=== PATIENT | male | born 1935 | race Caucasian/White ===

== ENCOUNTER → 2021-03-26 09:35 | Outpatient (CLI) | payer MEDICARE, OTHER, SELFPAY ==
--- NOTE | 2021-03-26 09:36 | DI.MRI.S_ITS ---
PROCEDURE: MR CERVICAL SPINE WO CON INDICATIONS: Cervical radiculopathy TECHNIQUE: Noncontrast sagittal T1 spin echo and T2 fast spin echo, sagittal STIR, foraminal oblique sagittal T2 fast spin echo, and axial gradient echo or T2 fast spin echo through the cervical spine. COMPARISON: None. FINDINGS: Image quality: Excellent. Alignment and Curvature: There is normal bony alignment. Bone Marrow: Marrow demonstrates normal overall signal. Spinal Cord: Visualized spinal cord has normal size and signal. No cerebellar tonsillar herniation. Paraspinous Soft Tissues: No paravertebral masses. Prevertebral soft tissues are normal in thickness. C2-C3: No spinal canal or neural foraminal stenosis. C3-C4: Mild spinal canal stenosis due to posterior disc-osteophyte complex. Facet and uncovertebral hypertrophy contribute to mild bilateral neural foraminal narrowing. C4-C5: No spinal canal stenosis. Facet and uncovertebral hypertrophy contribute to moderate bilateral neural foraminal narrowing. C5-C6: No spinal canal stenosis. Moderate left and mild right neural foraminal narrowing due to facet and uncovertebral hypertrophy. C6-C7: No spinal canal stenosis. Moderate left and mild right neural foraminal stenosis due to facet and uncovertebral hypertrophy. C7-T1: No spinal canal or neural foraminal stenosis. IMPRESSION: Varying degrees of neural foraminal narrowing up to moderate. Mild spinal canal stenosis at C3-C4. Dictated by: Justin Robledo M.D. on 03/26/2021 at 13:09 Approved by: Justin Robledo M.D. on 03/26/2021 at 13:15
== END ==
PROVIDERS: PCP Family Medicine; Referring Provider Physical Medicine & Rehabilitation; Visit Provider Physical Medicine & Rehabilitation
DX: M54.12 Radiculopathy, cervical region (principal); M48.02 Spinal stenosis, cervical region
CPT/HCPCS: 72141

== ENCOUNTER → 2021-04-15 11:38 | Outpatient (ROUT) | payer MEDICARE, OTHER, SELFPAY ==
[2021-04-15 12:43] LABS: COVID19 -Nasal RAPID Negative (Negative)
== END ==
PROVIDERS: PCP Family Medicine; Visit Provider Physical Medicine & Rehabilitation
DX: Z20.822 Contact with and (suspected) exposure to COVID-19 (principal)
CPT/HCPCS: 87635; C9803

== ENCOUNTER 2021-04-16 08:35 | Outpatient (CLI) | payer MEDICARE, OTHER, SELFPAY ==
[2021-04-16] VITALS (8 sets, daily range): BP systolic 106–148; BP diastolic 55–70; PULSE 60–69; RESP 10–18; TEMP 36.3; O2SAT 95–100
--- NOTE | 2021-04-16 08:36 | DI.RAD.S_ITS ---
PROCEDURE: PAIN C/T INTERLAMINAR INJECT INDICATIONS: SPINAL STENOSIS COMPARISON: [facility], MR, MR CERVICAL SPINE WO CON, 03/26/2021, 9:53. [facility], RG, XR C-SPINE 4-6V, 12/10/2020, 10:20. FINDINGS: Fluoroscopic spot filming was performed to verify placement of spinal needles at the C6-C7 level(s), as labeled on the films. Appropriate location(s) of the needle tip(s) was confirmed by injection of iodinated contrast. IMPRESSION: Fluoroscopy guidance for pain management. Dictated by: Alka Mendoza M.D. on 04/16/2021 at 10:35 Approved by: Alka Mendoza M.D. on 04/16/2021 at 10:35
[2021-04-16] MEDS: fentaNYL 100 MCG/2 ML INJ 50 MCG IV (09:35)
[2021-04-16] MEDS: MIDAZOLAM 5 MG/5 ML VIAL IV (09:35)
[2021-04-16] MEDS: BUPIVACAINE 0.25% (PF) VIAL 2 ML INJ (09:38)
[2021-04-16] MEDS: DEXAMETHASONE 10 MG/ML VIAL 30 MG INJ (09:38)
[2021-04-16] MEDS: IOPAMIDOL 15 ML VIAL 3 ML INJ (09:38)
--- NOTE | 2021-04-16 09:50 | P.PCN_ITS ---
Date/Time/Diagnoses Date of procedure: 04/16/21 Time of procedure: 09:50 Pre-procedure diagnosis: 1. CERVICAL STENOSIS, 2. CERVICAL HNP WITH UPPER EXTREMITY RADICULAR FEATURES Post-procedure diagnosis: same Procedure Notes Procedure: 1. FLUORSCOPICALLY GUIDED CONTRAST CONTROLLED INTERLAMINAR EPIDURAL STEROID INJECTION - C6/7 TL BASILIO Indications: Fabian is referred by Dr. Izquierdo for treatment of Cervical HNP with Upper Extremity Paresthesias. Physician: Montana Rosas Total Fluoroscopy time (seconds): 24 Total sedation minutes: 11 Complications: none Procedure in detail & Post-procedure care: FINDINGS Cervical Stenosis due to disc deterioration and nerve root irritation and nerve root irritation DESCRIPTION OF PROCEDURE Fluoroscopically guided, contrast-controlled C6/7 translaminar epidural steroid injection with conscious sedation. Following review of allergy and review of potential side effects and complications, including, but not necessarily limited to, infection, allergic reaction, local tissue breakdown, temporary as well as permanent nerve injury, stroke, paralysis, and possible , the patient indicated that patient understood and agreed to proceed. An informed consent document was signed by the patient, witnessed by a nurse, and placed in the patient's chart. Additionally, other treatment options including modalities, medications, and physical therapy were reviewed with the patient. After review of previous anaesthesic history and IV conscious sedation the patient was deemed safe to proceed with today?s procedure with IV conscious sedation as ASA class II designation. Safety time-out was performed to confirm patient ID, procedure to be performed and site of procedure. IV sedation was accomplished with a combination of 2mg of Versed and 50mcg of Fentanyl administered by the RN after DO order, titrated to patient comfort during the course of the procedure while the patient remained responsive to all verbal commands. In the prone position, following sterile prep and drape of the cervical region, the C6/7 translaminar space was identified fluoroscopically. The skin was anesthetized via a 25-gauge 1.5-inch needle with 1% lidocaine solution. At this point, a 25-gauge, 2.5-inch short bevel spinal needle was atraumatically introduced and advanced under fluoroscopic guidance into epidural space at the C6/7 translaminar space. Depth was confirmed on lateral view. Radiological data, including multiple fluoroscopic views of the cervical spine, reveal a spinal needle at the C6/7 translaminar space. Lateral views then show placement of the needle in the epidural space. Subsequent views show contrast material flowing superiorly and inferiorly in the epidural space. DSA fluoroscopy with live contrast injection, once again, confirmed no vascular or intrathecal uptake. At this point, using loss of resistance technique with saline and air, the epidural space was entered. Following negative aspiration, injection of appr oximately 1.5 cc of Isovue-200 with live fluoroscopy in the AP view confirmed epidural flow in the epidural space without vascular or intrathecal uptake observed. Subsequently, a test dose of 1 cc of 1% lidocaine solution was injected and patient was observed for two minutes without signs or symptoms of complications, including abdominal pain, shortness of breath, bilateral upper or lower extremity weakness, nausea and vomiting, prior to steroid injection. At this point, 3cc or 30mg of dexamethasone was then injected without incident. The patient tolerated the procedure well without signs or symptoms of complications prior to being transferred to the recovery area for further monitoring, The patient was then transferred to the recovery area where they were observed for an appropriate period of time after the injection. The patient reported a VAS score of 6 prior to the procedure and a post-procedure VAS of 0. POST OP INSTRUCTIONS The patient was provided a Pain Log to continue to record their response to the target-specific procedure prior to follow-up visit with the referring provider. Additionally, specific post-injection care instructions and a contact number to our office were provided if concerns arise regarding possible complications associated with the procedure are suspected.
== END 2021-04-16 10:10 | disposition home or self-care (01) ==
LOC: RAD 08:36
PROVIDERS: PCP Family Medicine; Referring Provider Physical Medicine & Rehabilitation; Visit Provider Physical Medicine & Rehabilitation
DX: M48.02 Spinal stenosis, cervical region (principal); M50.123 Cervical disc disorder at C6-C7 level with radiculopathy
CPT/HCPCS: 62321; 99152; J1100; J2250; J3010

== ENCOUNTER → 2021-09-27 10:52 | Outpatient (CLI) | payer MEDICARE, OTHER, SELFPAY ==
[2021-09-27 12:40] LABS: COVID19 -Nasal RAPID Negative (Negative)
== END ==
PROVIDERS: PCP Family Medicine; Visit Provider Family Medicine Sleep Medicine
DX: Z20.822 Contact with and (suspected) exposure to COVID-19 (principal)
CPT/HCPCS: 87635; C9803

== ENCOUNTER 2021-09-30 06:43 | Day surgery (SDC) | payer MEDICARE, OTHER, SELFPAY ==
[2021-09-30] VITALS (7 sets, daily range): BP systolic 109–162; BP diastolic 70–80; PULSE 58–66; RESP 12–17; TEMP 35.6–36.8; O2SAT 97–98; BMI 21.8
--- NOTE | 2021-09-30 | PATH_ITS ---
[facility] Accession Number: [id number] No. of containers..02 Tissue . 01 Material submitted: . PART A: duodenum - DUODENUM PART B: stomach - ANTRUM . 02 Diagnosis: A. Duodenum: Duodenal mucosa with no diagnostic abnormality. Negative for active inflammation, features of sprue, dysplasia, or malignancy. . B. Antrum: Gastric antral mucosa with mild chronic inflammation. Negative for Helicobacter organisms by immunohistochemistry. Positive for intestinal metaplasia. Negative for dysplasia or malignancy. [facility] 10/03/2021 1411 Local . 02 Electronically signed: . Lamar Borrero MD, Pathologist NPI- [id number] . 01 Gross description: . Part A: DUODENUM: Received in formalin are 2 fragment(s) of gonzalez, soft tissue measuring 0.3 x 0.3 x 0.2 cm to 0.3 x 0.2 x 0.2 cm submitted entirely in 1 cassette(s) Part B: ANTRUM: Received in formalin are 2 fragment(s) of gonzalez, soft tissue measuring 0.2 x 0.2 x 0.1 cm to 0.1 x 0.1 x 0.1 cm submitted entirely in 1 cassette(s) /[facility] 10/01/2021 1943 Local . 02 Microscopic: . B. An immunohistochemical stain is performed to evaluate for Helicobacter organisms and is negative. The control stain showed appropriate reactivity. . . * This test was developed and its performance characteristics determined by [employer]. It has not been cleared or approved by the U.S. Food and Drug Administration. The FDA has determined that such clearance or approval is not necessary. This test is used for clinical purposes. It should not be regarded as investigational or for research. . 02 Pathologist provided ICD-10: R14.0 . 02 CPT . 207987, 309686, [id number] Specimen Comment: A courtesy copy of this report has been sent to [phone], [phone] Specimen Comment: [id number] Performed at: 01 [facility] [address] [address], [place], [place] [id number] MD Diego Poe MD Phone: [phone] Performed at: 02 [facility] [address] [address] [place] [id number] MD Jayla Moya MD Phone: [phone]
[2021-09-30] MEDS: SODIUM CHLORIDE 0.9% 1,000 ML 84 ML IV (07:27)
--- NOTE | 2021-09-30 07:58 | PM.HP.1 ---
History of Present Illness History of Present Illness Date Patient Seen: 09/30/21 Time Patient Seen: 07:58 Chief complaint: EGD W/BX Narrative: I reviewed my recent clinic note from September 10. No changes. Celiac serology was negative. 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 Impingement syndrome of right shoulder Surgical History History of arthroplasty of right shoulder History of cholecystectomy History of lumbar fusion Hx of appendectomy Family & Social History Family History Father Cancer Heart disease Mother Cancer Social History: household members spouse Tobacco & Substance use: Smoking Status Former smoker alcohol intake current alcohol intake frequency 0-2 drinks per day Substance Use Type does not use Meds Home Medications and Allergies Home Medications Medication Instructions Recorded Confirmed Type allopurinol 100 mg tablet 100 mg PO DAILY 03/18/21 09/30/21 History atorvastatin 40 mg tablet 40 mg PO DAILY 03/18/21 09/30/21 History losartan 100 mg tablet 100 mg PO DAILY 03/18/21 09/30/21 History metoprolol tartrate 25 mg tablet 25 mg PO DAILY 03/18/21 09/30/21 History pantoprazole 40 mg tablet,delayed 40 mg PO DAILY 03/18/21 09/30/21 History release tamsulosin 0.4 mg capsule 0.4 mg PO DAILY 03/18/21 09/30/21 History Allergies Allergy/AdvReac Type Severity Reaction Status Date / Time No Known Drug Allergies Allergy Verified 06/07/21 08:52 Review of Systems Review of Systems ROS: Yes All systems reviewed with the patient and are negative except as otherwise documented Exam Vital Signs (past 8 hours): - 09/30/21 07:14 Temperature 96.1 F L Pulse Rate 61 Respiratory Rate 17 Blood Pressure 162/80 H Pulse Oximetry 98 Oxygen Delivery Method Room Air Const General: cooperative and comfortable Orientation: alert HENMT Head: normocephalic Ears: external ears normal Nose: external nose normal Face and sinus: normal facial exam Mouth: oral mucosae normal Eyes General: appearance normal, both eyes and all related structures Neck Neck: normal visual inspection Chest Chest: normal inspection of the chest Resp Effort & Inspection: normal respiratory effort Cardio Rate: regular rate GI Inspection: normal to inspection Skin General: no rashes or lesions noted and No jaundice Neuro General: patient alert and moves all extremities Cognition: normal cognition Speech: speech normal Extrem General: no pedal edema Psych Appearance: grossly normal Assessment & Plan Assessment & Plan narrative: 86-year-old male with a history of bloating. He was found to have abnormal imaging suggesting duodenitis. EGD is therefore pursued. Time Spent With Patient Critical Care time: I spent a total of [] minutes of critical care time on this patient's care today; this time is exclusive of procedural time.
--- NOTE | 2021-09-30 08:00 | PM.PREOP ---
Pre-operative Note COVID-19 COVID-19 status: Negative Result date/Date tested (Pos, Neg/Pending): 09/27/21 Criteria for continued procedure: Possibility delay results in more complex future surgery or treatment Interval Note History & Physical reviewed/Exam performed by Physician: Yes Changes to H&P: Yes ASA Class (for procedural sedation): II
--- NOTE | 2021-09-30 08:19 | P.OP.EGD_ITS ---
Operative Date/Time/Diagnoses Date of procedure: 09/30/21 Time of procedure: 08:19 Pre-op diagnosis: Bloating abnormal imaging Post-op diagnosis: same Procedure & Clinicians Study performed: EGD with biopsies Same procedure as scheduled: Yes Indications: Bloating abnormal imaging Surgeon: Edmond Ashford Procedure Notes SCOAP/Timeout: Done Procedure in detail: After the risks and benefits were explained, written and verbal informed consent was obtained. The patient was brought into the procedure room and placed into the left lateral decubitus position. Please see nurse production machine operator notes for sedation details. The scope was introduced into the mouth through the bite block and advanced under direct visualization to the 2nd portion of the duodenum. The scope was slowly withdrawn carefully examining the mucosa for any defects or lesions. Retroflexed views were accomplished in the stomach. The stomach was decompressed, the scope was then removed from the patient who tolerated the procedure well. Sedation minutes: 11 Complications: none Impression: 1. Esophagus: The squamocolumnar junction correlated with the top of the gastric folds. GEJ was at about 40 cm from the incisors. No acute erosive changes no strictures no mass lesions. 2. Stomach: The patient had a moderate gastropathy characterized by a patchy erythema with off white appearing papules. These areas were biopsied for histopathology. No ulcers no mass lesions no outlet obstruction. Retroflexed views of the LES were unremarkable. 3. Duodenum: No mucosal pathology was appreciated from the bulb through to the 2nd portion. Biopsies were taken at random in D2. I was able to advance the scope all the way through the duodenum to perhaps D4 and did not appreciate any additional pathology with the exception of a large duodenal diverticulum in and around the corner into D3. Endoscopic diagnosis 1. Gastropathy 2. Duodenal diverticulosis Post-procedure Plan for aftercare: 1. Await histopathology. 2. Surveillance EGD is not planned. 3. Follow up primary care. Disposition: PACU
== END 2021-09-30 08:54 | disposition home or self-care (01) ==
LOC: ENDO 06:45
PROVIDERS: PCP Family Medicine; Referring Provider Internal Medicine Gastroenterology; Visit Provider Internal Medicine Gastroenterology
PROC: 0DJ08ZZ Inspection of Upper Intestinal Tract, Via Natural or Artificial Opening Endoscopic (ICD-10-PCS; CPT 43235; principal; 2021-09-30 08:00)
DX: K57.10 Diverticulosis of small intestine without perforation or abscess without bleeding (principal); K29.50 Unspecified chronic gastritis without bleeding
CPT/HCPCS: 43239

== ENCOUNTER → 2022-03-20 13:29 | Outpatient (CLI) | payer MEDICARE, OTHER, SELFPAY ==
--- NOTE | 2022-03-20 13:31 | DI.MRI.S_ITS ---
PROCEDURE: MR LUMBAR SPINE WO CON INDICATIONS: Lumbar radiculopathy, status post fusion TECHNIQUE: Noncontrast sagittal T1 spin echo and T2 fast echo, sagittal STIR, and T2 fast spin echo through the lumbar spine. In cases with scoliosis, additional coronal T2 fast spin echo may be performed. COMPARISON: [facility] Outside Film, CT, CT ABDOMEN WITH/WITHOUT AND PELVIS WITH CONTRAST, 06/22/2019, 12:46. [facility], CR, XR LUMBAR SPINE 2 OR 3 VIEWS, 02/27/2020, 8:43. FINDINGS: Image quality: Excellent. Alignment and Curvature: Mild dextroconvex scoliotic curvature is seen. Minimal retrolisthesis is seen at the L2-L3 level. There is minimal anterolisthesis at L3-L4 and L4-L5. Minimal retrolisthesis is seen at L5-S1. Bone Marrow: Marrow is of normal overall signal. No acute vertebral body compression fractures. Spinal Cord: Conus medullaris terminates at the T12-L1 level. Visualized cord demonstrates normal signal and size. Paraspinous Soft Tissues: No paravertebral masses. T11-T12: At least moderate loss of disc height and disc signal can be seen. Mild generalized disc bulge is seen. There is a superimposed central disc protrusion. There is moderate left-sided and moderate to severe right-sided neural foraminal narrowing. Mild central canal narrowing is seen. T12-L1: The disc height and disc signal are relatively well preserved. Mild generalized disc bulge is seen. Mild facet joint hypertrophy is seen. There is moderate right-sided and mild left-sided neural foraminal narrowing. No significant central canal narrowing is seen. L1-L2: Moderate loss of disc height is seen. Loss of disc signal is seen. Moderate disc bulge is seen, which is eccentric to the right. Mild to moderate facet hypertrophy can be seen. There is moderate bilateral neural foraminal narrowing seen, left worse than right. Mild to moderate central canal narrowing is seen. L2-L3: Siru-ak-szudnime loss of disc height and disc signal can be seen. At least moderate disc bulge is seen. There is a superimposed central disc protrusion. Moderate facet joint hypertrophy is seen. Associated hypertrophy of the ligamentum flavum can be seen. Moderate bilateral neural foraminal narrowing can be seen, right worse than left. There is moderate to severe central canal narrowing, as on series 5, image 16. L3-L4: Moderate to severe loss of disc height and disc signal can be seen. Reactive marrow endplate changes are seen which are hypointense on T1-weighted imaging and hyperintense on T2 weighted imaging, which is most consistent with edema (Modic type I changes). At least moderate disc bulge is seen, which is eccentric to the left. Moderate facet joint hypertrophy is seen. There is moderate to severe bilateral neural foraminal narrowing seen, with an associated a degree of compression seen upon the exiting nerve roots. Moderate to severe central canal narrowing is also seen. L4-L5: Postoperative changes are seen, with right-sided pedicle screws at L4 and L5. There is a vertical fixation janusz seen. There is a disc spacer seen. Right hemilaminectomy change can be seen. Reactive marrow endplate changes are seen, which are hyperintense on T1-weighted and T2-weighted imaging and most consistent with fatty metaplasia (Modic type II changes). Moderate disc bulge is seen, which is eccentric to the left. There is moderate left-sided and rncx-ur-qsctwuml right-sided neural foraminal narrowing. Mild to moderate central canal narrowing is seen. L5-S1: At least moderate loss of disc height and disc signal can be seen. Moderate disc bulge is seen, with a mild central disc protrusion. There is a focal annular fissure seen posteriorly. Mild facet joint hypertrophy is seen. There is at least moderate bilateral neural foraminal narrowing seen, right worse than left. There is a degree of compression seen upon the exiting nerve roots. Mild central canal narrowing is seen. IMPRESSION: L4-5 postoperative change can be seen. Multiple levels of lumbar spine degenerative change are seen, which are overall worst at the L3-L4 level. Dictated by: Roger Becerra M.D. on 03/20/2022 at 17:38 Approved by: Roger Becerra M.D. on 03/20/2022 at 17:44
== END ==
PROVIDERS: PCP Nurse Practitioner Family; Referring Provider Physical Medicine & Rehabilitation; Visit Provider Physical Medicine & Rehabilitation
DX: M47.26 Other spondylosis with radiculopathy, lumbar region (principal); Z98.1 Arthrodesis status
CPT/HCPCS: 72148

== ENCOUNTER 2022-05-13 12:47 | Outpatient (CLI) | payer MEDICARE, OTHER, SELFPAY ==
[2022-05-13] VITALS (8 sets, daily range): BP systolic 124–151; BP diastolic 63–73; PULSE 60–69; RESP 14–20; O2SAT 96–99
--- NOTE | 2022-05-13 13:47 | DI.RAD.S_ITS ---
PROCEDURE: PAIN L/SI FACET INJ/BLK 1STL INDICATIONS: SPONDYLOSIS COMPARISON: [facility], MR, MR LUMBAR SPINE WO CON, 03/20/2022, 13:52. FINDINGS: Fluoroscopic spot filming was performed to verify placement of spinal needles at the L5-S1 level, as labeled on the films. Appropriate location of the needle tips was confirmed by injection of iodinated contrast. IMPRESSION: No significant intraprocedural abnormality. Dictated by: Roger Becerra M.D. on 05/13/2022 at 13:51 Approved by: Roger Becerra M.D. on 05/13/2022 at 13:51
[2022-05-13] MEDS: MIDAZOLAM 2 MG/2 ML VIAL IV (13:55)
[2022-05-13] MEDS: BETAMETHASONE 30 MG/5 ML MDV 12 MG INJ (14:01)
[2022-05-13] MEDS: IOPAMIDOL 15 ML VIAL 3 ML INJ (14:01)
[2022-05-13] MEDS: BUPIVACAINE 0.5% (PF) VIAL 5 ML INJ (14:01)
--- NOTE | 2022-05-13 14:10 | P.PCN_ITS ---
Date/Time/Diagnoses Date of procedure: 05/13/22 Time of procedure: 14:11 Pre-procedure diagnosis: 1. FACET ARTHROPATHY, 2. AXIAL LBP, 3. MULTILEVEL DDD, Post-procedure diagnosis: same Procedure Notes Procedure: 1. FLUORSCOPICALLY GUIDED CONTRAST CONTROLLED FACET JOINT INJECTIONS BILATERAL L5/S1 Indications: Fabian is referred by MAGGIE Black for treatment of Axial LBP Physician: Montana Rosas Total Fluoroscopy time (seconds): 11 Total sedation minutes: 11 Complications: none Procedure in detail & Post-procedure care: DESCRIPTION OF PROCEDURE Fluoroscopically guided, contrast-controlled bilateral L5/S1 facet joint injections. Following review of allergy and review of potential side effects and complications, including, but not necessarily limited to, infection, allergic reaction, local tissue breakdown, stroke, temporary or permanent nerve injury, paralysis, and possible , the patient indicated that the patient understood and agreed to proceed. An informed consent document was signed by the patient, witnessed by a nurse, and placed in the patient's chart. Additionally, other treatment options including medications, modalities, and physical therapy were reviewed with the patient. After review of previous anaesthesic history and IV conscious sedation the patient was deemed safe to proceed with today?s procedure with IV conscious sedation as ASA class II designation. Safety time-out was performed to confirm patient ID, procedure to be performed and site of procedure. IV sedation was accomplished with a combination of 2mg of Versed administered by the RN after DO order, titrated to patient comfort during the course of the procedure while the patient remained responsive to all verbal commands In the prone position, following sterile prep and drape of the lumbar region, the posterior aspect of the L5/S1 facet joints were identified fluoroscopically. The skin was anesthetized via a 25-gauge 1.5-inch needle with 1% lidocaine solution into the corresponding facet joints. At this point, a 22-gauge 3inch spinal needle was atraumatically introduced and advanced under fluoroscopic guidance into the corresponding facet joints. Following negative aspiration, in jections of approximately 0.2cc of Isovue 200 confirmed interarticular placement without vascular uptake. The identical procedure was then performed at the L5/S1 facet joints on the left. Radiological data, including multiple fluoroscopic views of the lumbosacral spine, reveal a spinal needle at the L5/S1 facet joints bilaterally. Subsequent views show flow of contrast material both superiorly and inferiorly within the joint space without vascular or intrathecal uptake. At this point, a total of 0.5cc including a mixture of 0.25cc Marcaine and 0.25cc betamethasone was injected without complication into each of the corresponding facet joints. The patient tolerated the procedure well without signs or symptoms of complications prior to transfer to the recovery area continued monitoring without incident. The patient was then transferred to the recovery area where they were observed for an appropriate period of time after the injection. The patient reported a VAS score of 7 prior to the procedure and a post-procedure VAS of 0. POST OP INSTRUCTIONS The patient was provided a Pain Log to continue to record their response to the target-specific procedure prior to follow-up visit with their referring physician. Additionally, specific post-injection care instructions and a contact number to our office were provided if concerns arise regarding possible complications associated with the procedure are suspected.
== END 2022-05-13 14:30 | disposition home or self-care (01) ==
LOC: RAD 12:48
PROVIDERS: PCP Nurse Practitioner Family; Referring Provider Physical Medicine & Rehabilitation; Visit Provider Physical Medicine & Rehabilitation
DX: M47.817 Spondylosis without myelopathy or radiculopathy, lumbosacral region (principal); M51.37 Other intervertebral disc degeneration, lumbosacral region
CPT/HCPCS: 64493; 64494; 99152; J0702; J2250

== ENCOUNTER → 2022-06-17 14:15 | Outpatient (CLI) | payer MEDICARE, OTHER, SELFPAY ==
--- NOTE | 2022-06-17 14:17 | DI.RAD.S_ITS ---
PROCEDURE: XR HIP W PEL IF DONE VANE MIN 4V INDICATIONS: right hip and groin pain TECHNIQUE: AP pelvis with lateral view(s) of the both hip(s). COMPARISON: CR, XR LUMBAR SPINE 2 OR 3 VIEWS, 04/29/2017, 9:16. [facility], MR, MR LUMBAR SPINE WO CON, 03/20/2022, 13:52. FINDINGS: Bones: No fractures or dislocations. Pelvic ring appears intact. No suspicious bony lesions. There is severe right and moderate left hip joint degeneration. Mild degenerative joint disease of the sacroiliac joints bilaterally. Lower lumbar spine fusion at L4-L5 with right leona pedicular screws and fusion janusz. There is severe degenerative disc and facet disease in the lower lumbar spine. Soft tissues: The visualized bowel gas pattern is normal. No suspicious soft tissue calcifications. IMPRESSION: 1. 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 If clinical symptoms persist or clinical suspicion for pathology is high, a repeat examination in 7-10 days, or advanced imaging such as CT or MRI is suggested for further evaluation. 2. Severe degenerative disc and facet disease in the lower lumbar spine. Dictated by: Alka Mendoza M.D. on 06/17/2022 at 15:08 Approved by: Alka Mendoza M.D. on 06/17/2022 at 15:13
== END ==
PROVIDERS: PCP Nurse Practitioner Family; Referring Provider Physical Medicine & Rehabilitation; Visit Provider Physical Medicine & Rehabilitation
DX: M16.0 Bilateral primary osteoarthritis of hip (principal); M47.816 Spondylosis without myelopathy or radiculopathy, lumbar region; M51.36 Other intervertebral disc degeneration, lumbar region; M48.062 Spinal stenosis, lumbar region with neurogenic claudication; M47.22 Other spondylosis with radiculopathy, cervical region; Z98.1 Arthrodesis status
CPT/HCPCS: 20611; 73522; 99215; J1040

== ENCOUNTER 2022-08-28 08:01 | Outpatient (CLI) | payer MEDICARE, OTHER, SELFPAY ==
[2022-08-28] VITALS (8 sets, daily range): BP systolic 124–177; BP diastolic 61–81; PULSE 63–75; RESP 14–19; TEMP 36.6; O2SAT 96–100
--- NOTE | 2022-08-28 08:03 | DI.RAD.S_ITS ---
PROCEDURE: PAIN L INTERLAMINAR/CAUDAL INJ INDICATIONS: SPONDYLOSIS COMPARISON: [facility], CR, XR LUMBAR SPINE WITH FLEXION EXTENSION 5 VIEWS, 07/09/2022, 10:26. FINDINGS: Billing purposes that Fluoroscopic spot filming was performed to verify placement of a spinal needle at the L5-S1 level, as labeled on the films. Appropriate location of the needle tip was confirmed by injection of iodinated contrast. IMPRESSION: No significant intraprocedural abnormality. Dictated by: Roger Becerra M.D. on 08/28/2022 at 11:11 Approved by: Roger Becerra M.D. on 08/28/2022 at 11:12
[2022-08-28] MEDS: MIDAZOLAM 2 MG/2 ML VIAL IV (08:59)
[2022-08-28] MEDS: IOPAMIDOL 15 ML VIAL 3 ML INJ (09:04)
[2022-08-28] MEDS: BETAMETHASONE 30 MG/5 ML MDV 6 MG INJ (09:04)
[2022-08-28] MEDS: DEXAMETHASONE 10 MG/ML VIAL 20 MG INJ (09:04)
[2022-08-28] MEDS: BUPIVACAINE 0.25% (PF) VIAL 2 ML INJ (09:05)
--- NOTE | 2022-08-28 09:13 | P.PCN_ITS ---
Date/Time/Diagnoses Date of procedure: 08/28/22 Time of procedure: 09:13 Pre-procedure diagnosis: 1. HNP WITH RADICULAR FEATURES, 2. MULTILEVEL CENTRAL STENOSIS, Post-procedure diagnosis: same Procedure Notes Procedure: 1. FLUOROSCOPICALLY GUIDED CONTRAST CONTROLLED INTERLAMINAR EPIDURAL STEROID INJECTION - L5/S1 Indications: Fabian is referred by MAGGIE Black for treatment of Bilateral Foraminal Stenosis L>R LE symptoms. Physician: [place] Rosas Total Fluoroscopy time (seconds): 5 Total sedation minutes: 10 Complications: none Procedure in detail & Post-procedure care: FINDINGS Multilevel Central Spinal Stenosis with Nerve Root Compression DESCRIPTION OF PROCEDURE Fluoroscopically guided, contrast-controlled L5/S1 translaminar epidural steroid injection. Following review of allergy and review of potential side effects and complications, including, but not necessarily limited to, infection, allergic reaction, local tissue breakdown, temporary as well as permanent nerve injury, paralysis, stroke and possible , the patient indicated that the patient understood and agreed to proceed. An informed consent document was signed by the patient, witnessed by a nurse, and placed in the patient's chart. Additionally, other treatment options including modalities, medications, and physical therapy were reviewed with the patient. After review of previous anaesthesic history and IV conscious sedation the patient was deemed safe to proceed with today?s procedure with IV conscious sedation as ASA class II designation. Safety time-out was performed to confirm patient ID, procedure to be performed and site of procedure. IV sedation was accomplished with a combination of 2mg of Versed administered by the RN after DO order, titrated to patient comfort during the course of the procedure while the patient remained responsive to all verbal commands. In the prone position, following sterile prep and drape of the lumbar region, the L5/S1 translaminar space was identified fluoroscopically. The skin was anesthetized via a 25-gauge, 1.5-inch needle with 1% lidocaine solution. At this point, a 22-gauge short bevel spinal needle was atraumatically introduced and advanced under fluoroscopic guidance into the region of the L5/S1 translaminar space. Depth was confirmed on lateral view. Radiological data, including multiple fluoroscopic views of the lumbar spine, reveal a spinal needle at the L5/S1 translaminar space. Lateral views then show placement of the needle in the epidural space. Subsequent views show contrast material flowing superiorly and inferiorly in the epidural space. No vascular or intrathecal uptake is observed. At this point, using loss of resistance technique with saline and air, the epidural space was entered. This was confirmed following negative aspiration with injection of approximately 1.5cc of Isovue 200, showing excellent epidural flow without vascular or intrathecal uptake. At this point, 1 cc of 1% l idocaine solution combined with 3cc or 20mg of dexamethasone and 6mg of betamethasone was injected without incident. The patent tolerated the procedure without signs of symptoms of complications pr ior to transfer to the recovery area for further monitoring. The patient was then transferred to the recovery area where they were observed for an appropriate period of time after the injection. The patient reported a VAS score of 6 prior to the procedure and a post-procedure VAS of 0. POST OP INSTRUCTIONS The patient was provided a Pain Log to continue to record their response to the target-specific procedure prior to follow-up visit with their referring physician. Additionally, specific post-injection care instructions and a contact number to our office were provided if concerns arise regarding possible complications associated with the procedure are suspected.
== END 2022-08-28 09:36 | disposition home or self-care (01) ==
PROVIDERS: PCP Nurse Practitioner Family; Referring Provider Physical Medicine & Rehabilitation; Visit Provider Physical Medicine & Rehabilitation
DX: M48.062 Spinal stenosis, lumbar region with neurogenic claudication (principal); M51.17 Intervertebral disc disorders with radiculopathy, lumbosacral region
CPT/HCPCS: 62323; 99152; J0702; J1100; J2250; J3490

== ENCOUNTER → 2022-09-05 11:50 | Outpatient (CLI) | payer MEDICARE, OTHER, SELFPAY ==
[2022-09-05 12:18] LABS: Add Manual Diff / Slide Review NO; Basophils Absolute Auto 0 /uL (0-100); Basophils Percent Auto 0.6 % (0-2); Eosinophils Absolute Auto 100 /uL (0-450); Eosinophils Percent Auto 1.3 % (2-4); Hematocrit 40.4 % (41-53); Lymphocytes Absolute Auto 1700 /uL (1100-4500); Lymphocytes Percent Auto 23.4 % (25-40); Mean Corpuscular HGB Conc 34.6 % (30-36); Mean Corpuscular Hemoglobin 31.8 PG (26-34); Monocytes Absolute Auto 900 /uL (0-900); Neutrophils Absolute Auto 4500 /uL (1500-7000); Neutrophils Percent Auto 62.7 % (50-75); Platelet Count 194 X10^3/uL (150-400); Red Blood Cell Count 4.39 X10^6/uL (4.5-5.9); Red Cell Distribution Width 13.1 % (11.6-14.8); White Blood Cell Count 7.2 X10^3/uL (4.5-11.0)
[2022-09-05 12:38] LABS: BUN Creatinine Ratio 21.3 (6-22); Blood Urea Nitrogen 17 mg/dL (9-20); Carbon Dioxide 29 mmol/L (22-32); Chloride 94 mmol/L (98-107); Estimated Glomerular Filt Rate > 60 mL/min (>60); Glucose 92 mg/dL (80-110); HEMOLYSIS < 15 (0-50); Potassium 4.2 mmol/L (3.4-5.1); Sodium 133 mmol/L (137-145)
== END ==
PROVIDERS: PCP Nurse Practitioner Family; Referring Provider Surgery; Visit Provider Surgery
DX: K62.89 Other specified diseases of anus and rectum (principal)
CPT/HCPCS: 36415; 46600; 80048; 85025; 99213

== ENCOUNTER 2022-09-06 10:29 | Emergency (ER) | payer MEDICARE, OTHER, SELFPAY ==
[2022-09-06] VITALS (12 sets, daily range): BP systolic 151–189; BP diastolic 69–84; PULSE 65–76; RESP 14–44; TEMP 36.9; O2SAT 97–99; BMI 22.2
--- NOTE | 2022-09-06 10:56 | PC.NURSE ---
pt states he has history of indigestion and what he thought was that started yesterday afternoon. he took some gerogi kati and felt better but also took Tums. but he continued to feel this way through the night. he went to the [facility] today and they sent him to ER to rule out heart issues
--- NOTE | 2022-09-06 11:10 | DI.RAD.S_ITS ---
PROCEDURE: XR CHEST 1V INDICATIONS: chest pain TECHNIQUE: One view of the chest was acquired. COMPARISON: None. FINDINGS: Surgical changes and devices: None. Lungs and pleura: On this semiupright portable chest examination, no large pneumothorax or large pleural effusions are seen. No focal infiltrates are seen. Mediastinum: The cardiac contours are within normal limits. The aorta demonstrates calcification and tortuosity. Bones and chest wall: No suspicious bony lesions. Age-appropriate bony degenerative changes are seen. Overlying soft tissues appear unremarkable. IMPRESSION: No acute cardiopulmonary process is seen. Dictated by: Roger Becerra M.D. on 09/06/2022 at 10:56 Approved by: Roger Becerra M.D. on 09/06/2022 at 10:56
[2022-09-06 11:22] LABS: Prothrombin Time 11.4 SECONDS (10.1-12.7)
[2022-09-06 11:24] LABS: PTT Partial Thromboplastin Tim 27 SECONDS (26-36)
[2022-09-06 11:27] LABS: Alanine Aminotransferase 35 IU/L (<50); Albumin 4.2 g/dL (3.5-5.0); Albumin Globulin Ratio 1.4 (1.0-2.8); Alkaline Phosphatase 87 U/L (38-126); Aspartate Aminotransferase 32 IU/L (17-59); BUN Creatinine Ratio 16.9 (6-22); Bilirubin Total 0.9 mg/dL (0.2-1.3); Blood Urea Nitrogen 14 mg/dL (9-20); Carbon Dioxide 30 mmol/L (22-32); Chloride 93 mmol/L (98-107); Creatine Kinase 38 U/L (55-170); Estimated Glomerular Filt Rate > 60 mL/min (>60); Glucose 92 mg/dL (80-110); Lipase 128 U/L (23-300); Magnesium 1.8 mg/dL (1.6-2.3); Sodium 131 mmol/L (137-145); Total Protein 7.2 g/dL (6.3-8.2)
[2022-09-06 11:29] LABS: Add Manual Diff / Slide Review NO; Basophils Absolute Auto 0 /uL (0-100); Basophils Percent Auto 0.6 % (0-2); Eosinophils Absolute Auto 100 /uL (0-450); Eosinophils Percent Auto 1.4 % (2-4); Hematocrit 40.1 % (41-53); Hemoglobin 13.9 g/dL (13.5-17.5); Lymphocytes Absolute Auto 1600 /uL (1100-4500); Lymphocytes Percent Auto 23.1 % (25-40); Mean Corpuscular HGB Conc 34.8 % (30-36); Mean Corpuscular Hemoglobin 31.8 PG (26-34); Mean Corpuscular Volume 91.5 fL (80-100); Monocytes Absolute Auto 800 /uL (0-900); Monocytes Percent Auto 11.4 % (3-14); Neutrophils Absolute Auto 4400 /uL (1500-7000); Neutrophils Percent Auto 63.5 % (50-75); Platelet Count 185 X10^3/uL (150-400); Red Blood Cell Count 4.38 X10^6/uL (4.5-5.9); Red Cell Distribution Width 13.4 % (11.6-14.8); White Blood Cell Count 6.9 X10^3/uL (4.5-11.0)
[2022-09-06 11:40] LABS: HEMOLYSIS 21 (0-50); NT-proBNP (BNP-Adult 18+) 129 pg/mL (<450); Troponin I < 0.012 ng/mL (0.01-0.034)
--- NOTE | 2022-09-06 14:45 | ED_ITS ---
HPI - Chest Pain General Chief Complaint: Chest Pain Stated Complaint: Physician referred; blood work; needs checked out Time Seen by Provider: 09/06/22 14:18 Source: patient Mode of arrival: Family Vehicle Limitations: no limitations History of Present Illness HPI narrative: An 87-year-old male with history of hypertension, dyslipidemia, osteoarthritis with prior fusion and patient states he had cardiac catheterization in the past which was negative but remotely. Patient states last night he had left-sided so rt of substernal chest pain that did not radiate it started about 2:00 p.m. and lasted about 3:00 a.m. in the morning he states it was more of a discomfort, he states it was not pressure. It did not cause a lot of issues but was intermittent but sometimes lasts about 20 seconds and then resolve maybe come back half an hour later. Patient states nothing seemed to make it worse. He did try some Tums and georgi kati that seemed to help it but not take it totally away. Patient states no diaphoresis. No shortness of breath. No cold cough or congestion, no fevers or chills. No nausea or vomiting. No lightheadedness or passing out. No radiation to pain. States it felt similar to a couple years ago when he did have that cardiac catheterization. He states that he would had lab work at the [facility] it was indeterminate or elevated and so he was sent to [place] re had a cardiac catheterization and found to have clean coronary arteries. He no longer takes aspirin daily, he takes 1 dose of ibuprofen daily or most days. He has had cholecystectomy, appendectomy, hernia repair, L4-L5 fusion. No prior cardiac stents, no angioplasty, no ablations. No known drug allergies. No tobacco has 2 beers daily. No illicit. Aurora Black is his primary care provider. Related Data Home Medications Medication Instructions Recorded Confirmed allopurinol 100 mg tablet 100 mg PO DAILY 03/18/21 09/05/22 atorvastatin 40 mg tablet 40 mg PO DAILY 03/18/21 09/05/22 losartan 100 mg tablet 100 mg PO DAILY 03/18/21 09/05/22 metoprolol tartrate 25 mg tablet 25 mg PO DAILY 03/18/21 09/05/22 pantoprazole 40 mg tablet,delayed 40 mg PO DAILY 03/18/21 09/05/22 release Previous Rx's Medication Instructions Recorded celecoxib 200 mg capsule (Celebrex) 200 mg PO DAILY #30 caps 08/07/22 amoxicillin 500 mg-potassium 1 tab PO Q12H perirectal abscess 09/02/22 clavulanate 125 mg tablet #14 tabs (Augmentin) Allergies Allergy/AdvReac Type Severity Reaction Status Date / Time No Known Drug Allergies Allergy Verified 09/05/22 11:14 Review of Systems Review of Systems ROS Unobtainable: All systems reviewed & are unremarkable except as noted in HPI and below 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 Facet arthropathy, lumbar Impingement syndrome of right shoulder Lumbar stenosis with neurogenic claudication Surgical History History of arthroplasty of right shoulder History of cholecystectomy History of lumbar fusion Hx of appendectomy Family History Father Cancer Heart disease Mother Cancer Social History household members: spouse Smoking Status: Former smoker alcohol intake: current Smoking Status: Former smoker tobacco type: cigarettes alcohol intake frequency: 0-2 drinks per day Substance Use Type: does not use Exam Narrative Exam Narrative: GENERAL: Alert and oriented x three, mild distress. HEENT: Head normocephalic, atraumatic, EOMI, pupils reactive, face symmetric, moist mucous membranes NECK: Supple, full range of motion CARDIOVASCULAR: Regular rate and rhythm without murmurs, rubs or gallops. No JVD. No swelling bilateral extremities. Nontender to palpation. No rash or skin changes. RESPIRATORY: Breath sounds equal bilaterally, no wheezes rales or rhonchi. ABDOMEN: Soft, nontender. Normoactive bowel sounds all 4 quadrants. No guarding or rebound, rigidity, no mass : No CVA tenderness EXTREMITIES: Normal range of motion, no clubbing or edema. Neurovascularly intact NEUROLOGICAL: Cranial nerves II through XII grossly intact. Moving all ex tremities SKIN: Warm, dry, no petechiae, no rashes or lesions. Initial Vital Signs Initial Vital Signs: Vital Signs Temperature 98.4 F 09/06/22 10:44 Pulse Rate 71 09/06/22 10:44 Respiratory Rate 19 09/06/22 10:44 Blood Pressure 189/84 H 09/06/22 10:44 Pulse Oximetry 98 09/06/22 10:44 Oxygen Delivery Method 09/06/22 10:44 Scores HEART Score Heart Score history: Moderately Suspicious Heart Score EKG: Non-Specific repolarization disturbance Heart Score Age: > or = 65 years old Heart Score risk factors: 1-2 risk factors Heart Score troponin: < or = to normal limit Heart Score Total: 5 Course Orders Ordered: ED Orders 09/06/22 10:51 BNP [NT-proBNP (BNP-Adult 18+)] Stat Complete Blood Count AUTO DIFF Stat Comprehensive Metabolic Panel Stat Lipase Stat Magnesium Stat Partial Thromboplastin Time Stat Prothrombin Time INR Stat Troponin & CK Cardiac Panel Stat 09/06/22 11:10 XR chest 1V Stat 09/06/22 14:25 Trop I [Troponin I] Stat Vital Signs Vital signs: Vital Signs - 8 hr 09/06/22 10:44 09/06/22 10:57 09/06/22 11:00 Temperature 98.4 F Pulse Rate 71 65 Respiratory Rate 19 29 H Blood Pressure 189/84 H 156/73 H Pulse Oximetry 98 98 Oxygen Delivery Method Room Air 09/06/22 11:00 09/06/22 11:30 09/06/22 11:30 Temperature Pulse Rate 65 66 Respiratory Rate 28 H 34 H Blood Pressure 151/69 H Pulse Oximetry 97 97 Oxygen Delivery Method 09/06/22 12:00 09/06/22 12:00 09/06/22 12:30 Temperature Pulse Rate 65 65 Respiratory Rate 24 39 H Blood Pressure 151/71 H Pulse Oximetry 97 97 Oxygen Delivery Method 09/06/22 13:00 09/06/22 13:30 09/06/22 14:00 Temperature Pulse Rate 76 69 69 Respiratory Rate 19 26 H 14 Blood Pressure Pulse Oximetry 97 98 97 Oxygen Delivery Method 09/06/22 14:30 09/06/22 15:00 09/06/22 15:08 Temperature Pulse Rate 70 73 Respiratory Rate 33 H 44 H Blood Pressure 152/77 H Pulse Oximetry 98 99 Oxygen Delivery Method 09/06/22 15:08 Temperature Pulse Rate 74 Respiratory Rate 37 H Blood Pressure Pulse Oximetry 98 Oxygen Delivery Method MDM - Chest Pain Lab Data 09/06/22 10:51 09/06/22 10:51 Labs: Lab Results 09/06/22 09/06/22 09/06/22 Range/Units 10:51 10:51 10:51 WBC 6.9 (4.5-11.0) X10^3/uL RBC 4.38 L (4.5-5.9) X10^6/uL Hgb 13.9 (13.5-17.5) g/dL Hct 40.1 L (41-53) % MCV 91.5 (80-100) fL MCH 31.8 (26-34) PG MCHC 34.8 (30-36) % RDW 13.4 (11.6-14.8) % Plt Count 185 (150-400) X10^3/uL Neut % (Auto) 63.5 (50-75) % Lymph % (Auto) 23.1 L (25-40) % [place] % (Auto) 11.4 (3-14) % Eos % (Auto) 1.4 L (2-4) % Baso % (Auto) 0.6 (0-2) % Neut # (Auto) 4400 (9374-0450) /uL Lymph # (Auto) 1600 (2924-0358) /uL [place] # (Auto) 800 (0-900) /uL Eos # (Auto) 100 (0-450) /uL Baso # (Auto) 0 (0-100) /uL PT 11.4 (10.1-12.7) SECONDS INR 1.0 (0.9-1.3) APTT 27 (26-36) SECONDS Sodium 131 L (137-145) mmol/L Potassium 4.0 (3.4-5.1) mmol/L Chloride 93 L (98-107) mmol/L Carbon Dioxide 30 (22-32) mmol/L BUN 14 (9-20) mg/dL Creatinine 0.83 (0.66-1.25) mg/dL Estimated GFR > 60 (>60) mL/min BUN/Creatinine Ratio 16.9 (6-22) Glucose 92 (80-110) mg/dL Calcium 9.0 (8.4-10.2) mg/dL Magnesium 1.8 (1.6-2.3) mg/dL Total Bilirubin 0.9 (0.2-1.3) mg/dL AST 32 (17-59) IU/L ALT 35 (<50) IU/L Alkaline Phosphatase 87 (38-126) U/L Total Creatine Kinase 38 L (55-170) U/L CK-MB (CK-2) TNP CK-MB (CK-2) Rel Index TNP Troponin I < 0.012 (0.01-0.034) ng/mL NT-Pro-B Natriuret Pep 129 (<450) pg/mL Total Protein 7.2 (6.3-8.2) g/dL Albumin 4.2 (3.5-5.0) g/dL Globulin 3.0 (1.7-4.1) g/dL Albumin/Globulin Ratio 1.4 (1.0-2.8) Lipase 128 (23-300) U/L 09/06/22 Range/Units 14:25 WBC (4.5-11.0) X10^3/uL RBC (4.5-5.9) X10^6/uL Hgb (13.5-17.5) g/dL Hct (41-53) % MCV (80-100) fL MCH (26-34) PG MCHC (30-36) % RDW (11.6-14.8) % Plt Count (150-400) X10^3/uL Neut % (Auto) (50-75) % Lymph % (Auto) (25-40) % [place] % (Auto) (3-14) % Eos % (Auto) (2-4) % Baso % (Auto) (0-2) % Neut # (Auto) (1676-1195) /uL Lymph # (Auto) (4019-7410) /uL [place] # (Auto) (0-900) /uL Eos # (Auto) (0-450) /uL Baso # (Auto) (0-100) /uL PT (10.1-12.7) SECONDS INR (0.9-1.3) APTT (26-36) SECONDS Sodium (137-145) mmol/L Potassium (3.4-5.1) mmol/L Chloride (98-107) mmol/L Carbon Dioxide (22-32) mmol/L BUN (9-20) mg/dL Creatinine (0.66-1.25) mg/dL Estimated GFR (>60) mL/min BUN/Creatinine Ratio (6-22) Glucose (80-110) mg/dL Calcium (8.4-10.2) mg/dL Magnesium (1.6-2.3) mg/dL Total Bilirubin (0.2-1.3) mg/dL AST (17-59) IU/L ALT (<50) IU/L Alkaline Phosphatase (38-126) U/L Total Creatine Kinase (55-170) U/L CK-MB (CK-2) CK-MB (CK-2) Rel Index Troponin I < 0.012 (0.01-0.034) ng/mL NT-Pro-B Natriuret Pep (<450) pg/mL Total Protein (6.3-8.2) g/dL Albumin (3.5-5.0) g/dL Globulin (1.7-4.1) g/dL Albumin/Globulin Ratio (1.0-2.8) Lipase (23-300) U/L Imaging Data Chest x-ray: Radiologist's Impression: [address] [address] XRay Report Signed Patient: Fabian Danielle MR#: [id number] : 1935 Acct:[id number] Age/Sex: 87 / M Date of Service: 09/06/22 Loc: Accession Number: [id number] ?? Procedure: XR chest 1V Ordering Provider: Katelyn Hollingsworth D.O. PROCEDURE:? XR CHEST 1V ? INDICATIONS:? chest pain ? TECHNIQUE:? One view of the chest was acquired.? ? COMPARISON:? None. ? FINDINGS:? ? Surgical changes and devices:? None.? ? Lungs and pleura:? On this semiupright portable chest examination, no large pneumothorax or large pleural effusions are seen.? No focal infiltrates are seen.? ? Mediastinum:? The cardiac contours are within normal limits. The aorta demonstrates calcification and tortuosity. ? Bones and chest wall:? No suspicious bony lesions.? Age-appropriate bony degenerative changes are seen. ? Overlying soft tissues appear unremarkable.? IMPRESSION:? ? No acute cardiopulmonary process is seen.? Dictated by: Roger Becerra M.D. on 09/06/2022 at 10:56 ? ? Approved by: Roger Becerra M.D. on 09/06/2022 at 10:56?? ECG Data Attestation: I personally reviewed and interpreted this ECG as follows: Interpretation: Sinus rhythm right bundle-branch block. Rate of 65 OR 146 QRS 122 QTC 449. Patient has T-wave inversion in lead was more flat on prior in 2013. EKG 2. Shows sinus rhythm right bundle-branch block rate of 67 OR 150 QRS 124 QTC 460. EKG appears similar with no changes from prior today. MDM Narrative Medical decision making narrative: This is an 87 year old male with complaint of left-sided chest pain substernal without radiation intermittent overnight starting at 2:00 a.m. in the afternoon yesterday 11:00 p.m. today came in this afternoon to be seen after he went to the urgent care and [facility] and was told to be checked out. Chest x-ray, lab work does not show any acute changes patient has right bundle-branch block does not appear significantly changed and only change in 1 lead from 2013. Patient has not had any persistent symptoms since 3:00 a.m. he is had no further symptoms since 3:00 a.m.. Patient does have risk factors. Discussed chest pain observation. We do not have stress testing over the weekend but could do serial troponins and echo. Patient defers he prefers to return home he is no longer on aspirin discussed can take a baby aspirin nightly and we discussed appropriate next steps would be follow-up for stress testing. We did discuss strict return precautions. Patient states he thinks it might be indigestion we discussed he could try Pepcid to see if this is helpful but if persisting worsening or having any other concerns he should return. Discharge Plan Departure Patient Disposition: Home Clinical Impression: Chest pain Activity Restrictions/Additional Instructions: Follow-up with your physician for recheck. We did discuss staying for observation so discussed with your physician about outpatient stress testing. I would recommend a baby aspirin daily (81mg) You can try Tums or Pepcid 40 mg daily if your symptoms seemed to be indigestion. Continue your home medications as prescribed. Please return for recurrent chest pain, shortness of breath, lightheadedness, passing out, sweatiness or diaphoresis, nausea or vomiting, no abdominal back or flank pain or other new or concerning changes. Prescriptions: No Action amoxicillin-pot clavulanate [Augmentin] 500-125 mg tablet 1 tab PO Q12H Qty: 14 0RF celecoxib [Celebrex] 200 mg capsule 200 mg PO DAILY Qty: 30 2RF atorvastatin 40 mg tablet 40 mg PO DAILY losartan 100 mg tablet 100 mg PO DAILY pantoprazole 40 mg tablet,delayed release (DR/EC) 40 mg PO DAILY metoprolol tartrate 25 mg tablet 25 mg PO DAILY allopurinol 100 mg tablet 100 mg PO DAILY Referrals: Aurora Black ARNP [Primary Care Provider] - Stand Alone Forms: Patient Portal/API
[2022-09-06 15:02] LABS: Troponin I < 0.012 ng/mL (0.01-0.034)
== END 2022-09-06 15:14 | disposition home or self-care (01) ==
PROVIDERS: Emergency Provider Emergency Medicine; PCP Nurse Practitioner Family
DX: R07.9 Chest pain, unspecified (principal)
CPT/HCPCS: 36415; 71045; 80053; 82550; 83690; 83735; 83880; 84484; 85025; 85610; 85730; 93005; 93010; 99283; 99284

== ENCOUNTER → 2022-09-08 11:32 | Outpatient (CLI) | payer MEDICARE, OTHER, SELFPAY ==
--- NOTE | 2022-09-08 11:33 | DI.CT.S_ITS ---
PROCEDURE: CT ABDOMEN PELVIS W CON INDICATIONS: Check soft tissue of buttock region for abcsess/other source TECHNIQUE: After the administration of intravenous contrast, axial sections acquired from the lung bases to the pubic symphysis. Coronal and sagittal reformats were performed. For radiation dose reduction, the following was used: automated exposure control, adjustment of mA and/or kV according to patient size. COMPARISON: [facility], CT, CT ABDOMEN WITH/WITHOUT AND PELVIS WITH CONTRAST, 06/22/2019, 12:46. FINDINGS: Image quality: Excellent. Lung bases: Lung bases are clear. Heart size is normal. Solid organs: Liver: The liver has no mass or intrahepatic biliary ductal dilatation. The portal vein and hepatic veins are patent. The liver has multiple subcentimeter hypodensities consistent with cysts which are unchanged compared to 06/22/2019. No solid masses. Biliary: Status post cholecystectomy. Pancreas: The pancreas has no mass or ductal dilatation. There is no surrounding inflammation. Spleen: Normal size. There are no masses. Adrenals: No hypertrophy or nodules. Kidneys: No obstructive calculus or hydronephrosis. Subcentimeter wedge-shaped cortical hypodensities in both kidneys are new, probably scarring given their multiplicity. No enhancing masses. No cystic mass. Peritoneum and bowel: The distal esophagus and stomach are normal. The small bowel has a normal caliber and appearance. The terminal ileum is normal. The large bowel has a normal caliber and appearance. No free fluid or air. Nodes and vessels: No retroperitoneal or mesenteric adenopathy by size criteria. 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 Miscellaneous: There is a fat containing left inguinal hernia. PELVIS: Genitourinary: The bladder has no wall thickening or mass. No bladder calcifications. Bones: There are multilevel degenerative changes. L4-5 demonstrate pedicular screw and janusz fixation. There has been discectomy and interbody fusion at L4-5. Vacuum disc changes are seen at multiple levels. No vertebral body compression fractures. IMPRESSION: No acute abdominal or pelvic abnormality. Dictated by: Aaron Sethi M.D. on 09/08/2022 at 11:58 Approved by: Aaron Sethi M.D. on 09/08/2022 at 12:06
== END ==
PROVIDERS: PCP Nurse Practitioner Family; Referring Provider Surgery; Visit Provider Surgery
DX: K62.89 Other specified diseases of anus and rectum (principal); K40.90 Unilateral inguinal hernia, without obstruction or gangrene, not specified as recurrent
CPT/HCPCS: 74177

== ENCOUNTER 2022-09-23 15:17 | Outpatient (CLI) | payer MEDICARE, OTHER, SELFPAY ==
[2022-09-23] VITALS (8 sets, daily range): BP systolic 148–188; BP diastolic 75–92; PULSE 67–80; RESP 11–20; TEMP 35.9; O2SAT 96–100
--- NOTE | 2022-09-23 15:18 | DI.RAD.S_ITS ---
PROCEDURE: PAIN SI JOINT INJECTION VANE INDICATIONS: SACROILIAC DISORDER COMPARISON: [facility], CT, CT ABDOMEN PELVIS W CON, 09/08/2022, 11:41. [facility], XA, PAIN L INTERLAMINAR/CAUDAL INJ, 08/28/2022, 10:04. FINDINGS: On these intraprocedural images, there are spinal needles seen overlying the inferior aspect of both sacroiliac joints. Appropriate position of the tips of the needles was confirmed by injection of a small amount of iodinated contrast. IMPRESSION: Successful bilateral sacroiliac joint injection. Dictated by: Roger Becerra M.D. on 09/23/2022 at 16:12 Approved by: Roger Becerra M.D. on 09/23/2022 at 16:13
[2022-09-23] MEDS: MIDAZOLAM 2 MG/2 ML VIAL IV (16:05)
[2022-09-23] MEDS: BUPIVACAINE 0.5% (PF) 30 ML VIAL 5 ML INJ (16:06)
[2022-09-23] MEDS: BETAMETHASONE 30 MG/5 ML MDV 12 MG INJ (16:07)
[2022-09-23] MEDS: IOPAMIDOL 15 ML VIAL 3 ML INJ (16:08)
[2022-09-23] MEDS: LIDOCAINE 1% (PF) 5 ML 10 ML INJ (16:09)
--- NOTE | 2022-09-23 16:20 | PM.PROC.IR.1 ---
Date/Time/Diagnoses Date of procedure: 09/23/22 Time of procedure: 16:21 Pre-procedure diagnosis: Sacroiliac joint pain/DJD Post-procedure diagnosis: same Procedure Notes Procedure: Fluoroscopic guided contrast controlled bilateral sacroiliac joint injection Indications: Fabian is referred by MAGGIE Black for treatment of bilateral sacroiliac joint DJD Physician: Montana Rosas Total Fluoroscopy time (seconds): 15 Total sedation minutes: 10 Complications: none Procedure in detail & Post-procedure care: Description of procedure Fluoroscopic guided, contrast controlled bilateral sacroiliac joint injection Following review of allergies and review of potential side effects and complications, including, but not necessarily limited to, infection, allergic reaction, local tissue breakdown, temporary as well as permanent nerve injury, paralysis, stroke and possible , the patient indicated that they understood and agreed to proceed. An informed consent was signed by the patient, witnessed by a nurse, and placed in the patient's chart. Additionally, other treatment options including modalities, medications, and physical therapy were reviewed with the patient. After review of previous anaesthesic history and IV conscious sedation the patient was deemed safe to proceed with today?s procedure with IV conscious sedation as ASA class II designation. Safety time-out was performed to confirm patient ID, procedure to be performed and site of procedure. IV sedation was accomplished with a combination of 2mg Versed were administered by the RN after DO order, titrated to patient comfort during the course of the procedure while the patient remained responsive to all verbal commands In the prone position following sterile prep and drape of the pelvic region, the hyper lucency on in the inferior aspect of the sacroiliac joint was identified fluoroscopically the skin was anesthetized be a 25 gauge 1.5 inch needle with approximately 2cc of 1% lidocaine solution. At this point, a 22 gauge 3 in spinal needle was atraumatically introduced and advanced under fluoroscopic guidance into the inferior aspect of the right sacroiliac joint. Following negative aspiration, approximately 0.3cc of Isovue-300 was injected confirming intra-articular placement without vascular uptake. Radiographic data, including multiple fluoroscopic views of the pelvis, reveals a spinal needle in the sacroiliac joint hyper lucent zone. Subsequent view show flow contrast tear superiorly and inferiorly within the joint capsule without vascular intrathecal uptake. At this point a total of 1cc of 0.5% Marcaine was combined with 1cc of 6mg of betamethasone was injected without incident. Attention was then refocused the left sacroiliac joint where the procedure was replicated. The procedure tolerated the procedure well without signs or symptoms of complications prior to transfer to the recovery area continued monitoring without incident. The patient was then transferred to the recovery area with a bur observed for an appropriate time after the injection. The patient reverted a vas score of 7 prior to the procedure and post-procedure vas of 1. Postop instructions The patient was provided with a pain like to continue to record the patient's response to the target specific procedure prior to the patient's follow-up visit with the referring physician. Additionally, specific post injection care instructions and a contact number to our office were provided if concerns arise regarding the possible complications associated with procedure are suspected.
== END 2022-09-23 16:39 | disposition home or self-care (01) ==
PROVIDERS: PCP Nurse Practitioner Family; Referring Provider Physical Medicine & Rehabilitation; Visit Provider Physical Medicine & Rehabilitation
DX: M53.3 Sacrococcygeal disorders, not elsewhere classified (principal); M46.1 Sacroiliitis, not elsewhere classified
CPT/HCPCS: 27096; 99152; J0702; J2250

== ENCOUNTER 2022-10-25 08:14 | Emergency (ER) | payer MEDICARE, OTHER, SELFPAY ==
[2022-10-25 08:17] VITALS: BP 166/80; PULSE 95; O2SAT 96
[2022-10-25 08:19] VITALS: BP 166/80; PULSE 94; RESP 16; TEMP 36.4; O2SAT 96; BMI 22.2
--- NOTE | 2022-10-25 08:22 | ED_ITS ---
HPI - Arrhythmia/Palpitations General Chief Complaint: Arrhythmia/Palpitations Stated Complaint: heart rate over 110 for past 2 hours Time Seen by Provider: 10/25/22 08:17 Source: patient Mode of arrival: Ambulatory History of Present Illness HPI narrative: Patient is a 87-year-old male history of back issues, dyslipidemia, hypertension presenting today with palpitations. He reports that over the last 2 weeks he is had palpitations off and on. He checks his blood pressure daily heart rate seems to be as high as 105. He can tell it just starts pounding sometimes he is dizzy and lightheaded sometimes not. Sometimes it last 1-2 hours and then he snapped out of it. He recently traveled to [place] for 1 week for vacation which is when he started noticing palpitations. He had them again this morning. He felt a little weak. He denies any fever chills cough nausea vomiting or shortness of breath. No significant abdominal pain no low lower extremity swelling. He is scheduled for a stress test November 04. He was previously put on Celebrex for his back pain it was a new medication for him he started noticing palpitations after taking Celebrex however he is not taken it for about 1 week and he is still having some palpitations. Currently in sinus rhythm heart rate in the 90s on the monitor Related Data Home Medications Medication Instructions Recorded Confirmed allopurinol 100 mg tablet 100 mg PO DAILY 03/18/21 09/18/22 atorvastatin 40 mg tablet 40 mg PO DAILY 03/18/21 09/18/22 losartan 100 mg tablet 100 mg PO DAILY 03/18/21 09/18/22 metoprolol tartrate 25 mg tablet 25 mg PO DAILY 03/18/21 09/18/22 pantoprazole 40 mg tablet,delayed 40 mg PO DAILY 03/18/21 09/18/22 release Previous Rx's Medication Instructions Recorded celecoxib 200 mg capsule (Celebrex) 200 mg PO DAILY #30 caps 08/07/22 hydroxyzine pamoate 25 mg capsule 25 mg PO TID PRN pain (scale score 09/18/22 (Vistaril) 4-6) #60 caps methylprednisolone 4 mg tablets in See Rx Instructions PO PER PKG DIR 09/18/22 a dose pack (Medrol (Reinaldo)) radiculopathy #21 ea Allergies Allergy/AdvReac Type Severity Reaction Status Date / Time No Known Drug Allergies Allergy Verified 10/25/22 08:23 Review of Systems Review of Systems ROS Unobtainable: All systems reviewed & are unremarkable except as noted in HPI and below 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 Facet arthropathy, lumbar Impingement syndrome of right shoulder Lumbar stenosis with neurogenic claudication Sacral dysfunction Surgical History History of arthroplasty of right shoulder History of cholecystectomy History of lumbar fusion Hx of appendectomy Family History Father Cancer Heart disease Mother Cancer Social History household members: spouse Smoking Status: Former smoker alcohol intake: current Smoking Status: Former smoker tobacco type: cigarettes alcohol intake frequency: 0-2 drinks per day Substance Use Type: does not use Exam Initial Vital Signs Initial Vital Signs: Vital Signs Pulse Rate 95 H 10/25/22 08:17 Blood Pressure 166/80 H 10/25/22 08:17 Pulse Oximetry 96 10/25/22 08:17 GENERAL: Alert pleasant 87-year-old male and in no acute distress. HEENT: Head atraumatic,EOMI, pupils reactive, face symmetric, moist mucous membranes CARDIOVASCULAR: Regular rate and rhythm without murmurs, rubs or gallops. RESPIRATORY: Breath sounds equal bilaterally, no wheezes rales or rhonchi. ABDOMEN: Soft, nontender. Normoactive bowel sounds all 4 quadrants. No guarding or rebound. EXTREMITIES: Normal range of motion, no clubbing or edema. Neurovascularly intact NEUROLOGICAL: Alert and oriented x4.Normal gait and speech. SKIN: Warm, dry, no laceration, no petechiae, no rashes or lesions. Course Orders Ordered: ED Orders 10/25/22 08:22 Complete Blood Count AUTO DIFF Stat Comprehensive Metabolic Panel Stat D Dimer Stat Lipase Stat Troponin & CK Cardiac Panel Stat 10/25/22 08:25 EKG-12 Lead Stat 10/25/22 08:30 XR chest 1V Stat Vital Signs Vital signs: Vital Signs - 8 hr 10/25/22 08:19 10/25/22 08:17 10/25/22 08:17 Temperature 97.6 F Pulse Rate 94 H 95 H Respiratory Rate 16 Blood Pressure 166/80 H 166/80 H Pulse Oximetry 96 96 Oxygen Delivery Method Room Air 10/25/22 08:30 10/25/22 08:30 10/25/22 09:00 Temperature Pulse Rate 88 Respiratory Rate 21 Blood Pressure 134/69 129/71 Pulse Oximetry 95 Oxygen Delivery Method 10/25/22 09:00 10/25/22 09:18 10/25/22 09:18 Temperature Pulse Rate 83 87 Respiratory Rate 21 22 Blood Pressure 132/72 Pulse Oximetry 96 91 Oxygen Delivery Method Room Air 10/25/22 09:30 10/25/22 09:30 Temperature Pulse Rate 78 Respiratory Rate 23 Blood Pressure 128/74 Pulse Oximetry 97 Oxygen Delivery Method Room Air MDM - Arrhythmia/Palpitations Lab Data 10/25/22 08:22 10/25/22 08:22 Labs: Lab Results 10/25/22 10/25/22 10/25/22 Range/Units 08:22 08:22 08:22 WBC 5.1 (4.5-11.0) X10^3/uL RBC 4.30 L (4.5-5.9) X10^6/uL Hgb 13.7 (13.5-17.5) g/dL Hct 39.3 L (41-53) % MCV 91.5 (80-100) fL MCH 32.0 (26-34) PG MCHC 35.0 (30-36) % RDW 13.2 (11.6-14.8) % Plt Count 185 (150-400) X10^3/uL Neut % (Auto) 56.7 (50-75) % Lymph % (Auto) 26.1 (25-40) % [place] % (Auto) 10.8 (3-14) % Eos % (Auto) 3.5 (2-4) % Baso % (Auto) 2.9 H (0-2) % Neut # (Auto) 2900 (3760-7336) /uL Lymph # (Auto) 1300 (3695-5068) /uL [place] # (Auto) 600 (0-900) /uL Eos # (Auto) 200 (0-450) /uL Baso # (Auto) 100 (0-100) /uL D-Dimer 809 H (<500) ng/ml Sodium 132 L (137-145) mmol/L Potassium 4.3 (3.4-5.1) mmol/L Chloride 95 L (98-107) mmol/L Carbon Dioxide 31 (22-32) mmol/L BUN 12 (9-20) mg/dL Creatinine 0.74 (0.66-1.25) mg/dL Estimated GFR > 60 (>60) mL/min BUN/Creatinine Ratio 16.2 (6-22) Glucose 132 H (80-110) mg/dL Calcium 9.7 (8.4-10.2) mg/dL Total Bilirubin 0.5 (0.2-1.3) mg/dL AST 35 (17-59) IU/L ALT 28 (<50) IU/L Alkaline Phosphatase 76 (38-126) U/L Total Creatine Kinase 40 L (55-170) U/L CK-MB (CK-2) TNP CK-MB (CK-2) Rel Index TNP Troponin I < 0.012 (0.01-0.034) ng/mL Total Protein 7.4 (6.3-8.2) g/dL Albumin 4.2 (3.5-5.0) g/dL Globulin 3.2 (1.7-4.1) g/dL Albumin/Globulin Ratio 1.3 (1.0-2.8) Lipase 127 (23-300) U/L Imaging Data Chest x-ray: Radiologist's Impresson: PROCEDURE:? XR CHEST 1V ? INDICATIONS:? chest pain ? TECHNIQUE:? One view of the chest was acquired.? ? COMPARISON:? [facility], , XR CHEST 1V, 09/06/2022, 11:09. ? FINDINGS:? ? Surgical changes and devices:? None.? ? Lungs and pleura:? Lungs are clear.? No pleural effusions or pneumothorax.? ? Mediastinum:? Mediastinal contours appear normal.? Heart size is normal.? ? Bones and chest wall:? No suspicious bony lesions.? Overlying soft tissues appear unremarkable.? ? IMPRESSION:? No acute cardiopulmonary abnormalities or focal airspace disease. ? Dictated by: Raúl Simons M.D. on 10/25/2022 at 8:50 ? ECG Data Interpretation: Normal sinus rhythm rate 87 HI interval 156 QRS [address] changes no T- wave inversions incomplete right bundle-branch block noted similar to previous EKGs MDM Narrative Medical decision making narrative: Patient 87-year-old male who has had palpitations off and on for about 2 weeks lasting 1-2 hours. The highest heart rate is 105. Currently in sinus rhythm. He is taking metoprolol. He did also recently travel to [place] D-dimer is 800 he is not hypoxic age correction does not show this is significantly high I think unlikely to be pulmonary embolism. Troponin is negative he has a stress test coming up in a couple of weeks. I do recommend that he get an outpatient Holter monitor to monitor his heart rate and rhythm. Blood work is otherwise reassuring no leukocytosis, anemia, electrolyte abnormality, ANNA MARIE, chest x-ray is also negative. Patient is not having any infectious symptoms. Difficult to say if he is having an arrhythmia or not. At this time I do not see need for changing medication Discharge Plan Departure Patient Disposition: Home Clinical Impression: Palpitations Instructions: DI for Palpitations Activity Restrictions/Additional Instructions: *You have been diagnosed with palpitations *What to do: At this time he probably need a Holter monitor, please talk with y our primary care provider about this. You may monitor your heart rate when you feel this, there are phone applications that can do this. *Continue to take medications as directed *Follow up with your primary care provider in 2-3 days or call [phone] *Return to ER if you should have increased palpitations dizziness lightheadedness shortness of breath chest pain [or] any new, worsening or concerning symptoms Prescriptions: No Action celecoxib [Celebrex] 200 mg capsule 200 mg PO DAILY Qty: 30 2RF atorvastatin 40 mg tablet 40 mg PO DAILY losartan 100 mg tablet 100 mg PO DAILY pantoprazole 40 mg tablet,delayed release (DR/EC) 40 mg PO DAILY metoprolol tartrate 25 mg tablet 25 mg PO DAILY allopurinol 100 mg tablet 100 mg PO DAILY methylprednisolone [Medrol (Reinaldo)] 4 mg tablets,dose pack See Rx Instructions PO PER PKG DIR Qty: 21 0RF Rx Instructions: PO PER PKG DIR hydroxyzine pamoate [Vistaril] 25 mg capsule 25 mg PO TID PRN (Reason: pain (scale score 4-6)) Qty: 60 1RF Referrals: Aurora Black ARNP [Primary Care Provider] - Stand Alone Forms: Patient Portal/API
[2022-10-25 08:30] VITALS: BP 134/69; PULSE 88; RESP 21; O2SAT 95
--- NOTE | 2022-10-25 08:30 | DI.RAD.S_ITS ---
PROCEDURE: XR CHEST 1V INDICATIONS: chest pain TECHNIQUE: One view of the chest was acquired. COMPARISON: [facility], CR, XR CHEST 1V, 09/06/2022, 11:09. FINDINGS: Surgical changes and devices: None. Lungs and pleura: Lungs are clear. No pleural effusions or pneumothorax. Mediastinum: Mediastinal contours appear normal. Heart size is normal. Bones and chest wall: No suspicious bony lesions. Overlying soft tissues appear unremarkable. IMPRESSION: No acute cardiopulmonary abnormalities or focal airspace disease. Dictated by: Raúl Simons M.D. on 10/25/2022 at 8:50 Approved by: Raúl Simons M.D. on 10/25/2022 at 8:51
[2022-10-25 08:38] LABS: Add Manual Diff / Slide Review NO; Basophils Absolute Auto 100 /uL (0-100); Basophils Percent Auto 2.9 % (0-2); Eosinophils Absolute Auto 200 /uL (0-450); Eosinophils Percent Auto 3.5 % (2-4); Hematocrit 39.3 % (41-53); Hemoglobin 13.7 g/dL (13.5-17.5); Lymphocytes Absolute Auto 1300 /uL (1100-4500); Lymphocytes Percent Auto 26.1 % (25-40); Mean Corpuscular Volume 91.5 fL (80-100); Monocytes Absolute Auto 600 /uL (0-900); Monocytes Percent Auto 10.8 % (3-14); Neutrophils Absolute Auto 2900 /uL (1500-7000); Neutrophils Percent Auto 56.7 % (50-75); Platelet Count 185 X10^3/uL (150-400); Red Cell Distribution Width 13.2 % (11.6-14.8); White Blood Cell Count 5.1 X10^3/uL (4.5-11.0)
[2022-10-25 08:42] LABS: Alanine Aminotransferase 28 IU/L (<50); Albumin 4.2 g/dL (3.5-5.0); Albumin Globulin Ratio 1.3 (1.0-2.8); Alkaline Phosphatase 76 U/L (38-126); Aspartate Aminotransferase 35 IU/L (17-59); BUN Creatinine Ratio 16.2 (6-22); Bilirubin Total 0.5 mg/dL (0.2-1.3); Blood Urea Nitrogen 12 mg/dL (9-20); Calcium 9.7 mg/dL (8.4-10.2); Carbon Dioxide 31 mmol/L (22-32); Chloride 95 mmol/L (98-107); Creatine Kinase 40 U/L (55-170); Estimated Glomerular Filt Rate > 60 mL/min (>60); Globulin 3.2 g/dL (1.7-4.1); Glucose 132 mg/dL (80-110); HEMOLYSIS 18 (0-50); Lipase 127 U/L (23-300); Potassium 4.3 mmol/L (3.4-5.1); Sodium 132 mmol/L (137-145); Total Protein 7.4 g/dL (6.3-8.2)
[2022-10-25 08:53] LABS: Troponin I < 0.012 ng/mL (0.01-0.034)
[2022-10-25 08:56] LABS: D Dimer 809 ng/ml (<500)
[2022-10-25 09:00] VITALS: BP 129/71; PULSE 83; RESP 21; O2SAT 96
[2022-10-25 09:18] VITALS: BP 132/72; PULSE 87; RESP 22; O2SAT 91
[2022-10-25 09:30] VITALS: BP 128/74; PULSE 78; RESP 23; O2SAT 97
== END 2022-10-25 09:36 | disposition home or self-care (01) ==
PROVIDERS: Emergency Provider Emergency Medicine; PCP Nurse Practitioner Family
DX: R00.2 Palpitations (principal); R07.9 Chest pain, unspecified
CPT/HCPCS: 36415; 71045; 80053; 82550; 83690; 84484; 85025; 85379; 93005; 99283; 99284

== ENCOUNTER 2022-12-12 12:17 | Emergency (ER) | payer MEDICARE, OTHER, SELFPAY ==
[2022-12-12 12:32] VITALS: BP 167/76; PULSE 71; RESP 16; TEMP 35.9; O2SAT 95; BMI 21.8
--- NOTE | 2022-12-12 12:38 | DI.RAD.S_ITS ---
PROCEDURE: XR HIP W PEL IF DONE RT 2V INDICATIONS: fall on R hip, groin pain TECHNIQUE: 2 views of the hip were acquired. COMPARISON: [facility], CR, XR HIP W PEL IF DONE VANE 3TO4V, 06/17/2022, 14:28. FINDINGS: Bones: No fractures or dislocations. No suspicious bony lesions. The visualized pelvic ring appears intact. Moderate right hip osteoarthritis, with nonuniform joint space narrowing, osteophytosis and subchondral sclerosis. Soft tissues: No suspicious soft tissue calcifications or masses. IMPRESSION: No acute fracture. If there remains a high clinical concern , consider cross-sectional imaging for confirmation. Dictated by: Scar Avalos M.D. on 12/12/2022 at 12:58 Approved by: Scar Avalos M.D. on 12/12/2022 at 12:58
[2022-12-12] MEDS: HYDROCODONE/ACET 5/325 TABLET 1 TAB PO (15:56)
--- NOTE | 2022-12-12 17:06 | DI.CT.S_ITS ---
PROCEDURE: CT PEL WO CON INDICATIONS: eval for fx, right hip/pelvis neg XR TECHNIQUE: Noncontrast 3 mm axial sections acquired through the bony pelvis, with coronal and sagittal reformatting. COMPARISON: [facility], CR, XR HIP W PEL IF DONE RT 2V, 12/12/2022, 12:38. FINDINGS: Image quality: Excellent. Bones: Posterior fusion is present at L4-5. Hardware is intact without evidence of hardware fracture or periprosthetic lucency to suggest loosening. There is a nondisplaced focal area of cortical lucency identified within the greater trochanter, not well seen on all sequences. It is best appreciated on series 5, image 164. Soft tissues: Intestinal gas pattern is nonobstructive. Fat containing right inguinal hernia is present. Kidneys are atrophic. There is ectasia of the distal aorta. IMPRESSION: Focal area of cortical nondisplaced lucency within the greater trochanter not well seen on all sequences. Nondisplaced fracture is suspected. Dictated by: Marina Bae M.D. on 12/12/2022 at 17:33 Approved by: Marina Bae M.D. on 12/12/2022 at 17:39
--- NOTE | 2022-12-12 17:30 | ED_ITS ---
HPI - Fall <Aleyda Moreau PA-C - Last Filed: 12/12/22 18:08> General Chief Complaint: Fall Stated Complaint: rt hip pain/injury/fell t-1 Time Seen by Provider: 12/12/22 15:23 History of Present Illness HPI Narrative: This is an 87-year-old male with a history of hip osteoarthritis who presents with concern for right hip and groin pain. Patient states that 2 days ago he was stepping off of a small boat and he spread his legs too far and developed immediate extreme pain in his right hip at the crease of his hip and radiating into his groin. He describes it as a sharp shooting pain that is not constant. He states that he has never had pain this extreme before associated with his arthritis. He states he has been walking on it but the 1st day he did not walk on it much, he has to limp when he walks because it is painful he states once he standing it is not nearly as bad but position changes can be a problem for him. He denies numbness or tingling in the extremity, denies any other symptom, injuries or complaints. Related Data Home Medications Medication Instructions Recorded Confirmed allopurinol 100 mg tablet 100 mg PO DAILY 03/18/21 12/01/22 atorvastatin 40 mg tablet 40 mg PO DAILY 03/18/21 12/01/22 losartan 100 mg tablet 100 mg PO DAILY 03/18/21 12/01/22 metoprolol tartrate 25 mg tablet 25 mg PO DAILY 03/18/21 12/01/22 pantoprazole 40 mg tablet,delayed 40 mg PO DAILY 03/18/21 12/01/22 release acetaminophen 500 mg tablet 1,000 mg PO Q6H PRN 12/01/22 12/01/22 (Tylenol Extra Strength) ibuprofen 200 mg tablet 200 mg PO Q6H PRN 12/01/22 12/01/22 polymyxin B sulfate 10,000 2 drp EYE-LEFT DAILY 12/01/22 12/01/22 unit-trimethoprim 1 mg/mL eye drops Previous Rx's Medication Instructions Recorded hydroxyzine pamoate 25 mg capsule 25 mg PO TID PRN pain (scale score 09/18/22 (Vistaril) 4-6) #60 caps hydrocodone 5 mg-acetaminophen 325 1 tab PO Q8H PRN pain 3 days #10 12/12/22 mg tablet tabs Allergies Allergy/AdvReac Type Severity Reaction Status Date / Time No Known Drug Allergies Allergy Verified 12/01/22 10:54 Review of Systems <Aleyda Moreau PA-C - Last Filed: 12/12/22 18:08> Review of Systems Narrative: See HPI Patient History <Aleyda Moreau PA-C - Last Filed: 12/12/22 18:08> Medical History Carpal tunnel syndrome, right 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 Facet arthropathy, lumbar Impingement syndrome of right shoulder Lumbar stenosis with neurogenic claudication Sacral dysfunction Surgical History History of arthroplasty of right shoulder History of cholecystectomy History of lumbar fusion Hx of appendectomy Family History Father Cancer Heart disease Mother Cancer Social History household members: spouse Smoking Status: Former smoker alcohol intake: current Smoking Status: Former smoker tobacco type: cigarettes alcohol intake frequency: 0-2 drinks per day Substance Use Type: does not use Exam <Aleyda Moreau PA-C - Last Filed: 12/12/22 18:08> Narrative Exam Narrative: GENERAL: 87 year old patient appears stated age. Well-developed patient, in mild distress. HEAD: Atraumatic. Normocephalic. EYES: Pupils equal round and reactive. Extraocular motions intact. No scleral icterus. No injection or drainage. ENT: Nose without bleeding, purulent drainage. Airway patent. NECK: Trachea midline. Non tender CARDIOVASCULAR: Regular rate and rhythm without murmurs, gallops, or rubs. RESPIRATORY: Clear to auscultation. Breath sounds equal bilaterally. No wheezes, rales, or rhonchi. GASTROINTESTINAL: Abdomen soft, non-tender, nondistended. EXTREMITIES: There is very slight tenderness with palpation over the right trochanter, there is some slight pain with palpation over the hip crease on the right, patient is able to weightbear on a single right leg, single left leg, also able to perform flexion and extension of the hip without severe increased pain. No edema or joint tenderness. BACK: Nontender without deformity or crepitance. No flank tenderness. NEURO: AOx3. SKIN: No rash or erythema of visible areas Initial Vital Signs Initial Vital Signs: Vital Signs Temperature 96.7 F L 12/12/22 12:32 Pulse Rate 71 12/12/22 12:32 Respiratory Rate 16 12/12/22 12:32 Blood Pressure 167/76 H 12/12/22 12:32 Pulse Oximetry 95 12/12/22 12:32 Oxygen Delivery Method Room Air 12/12/22 12:32 <Katelyn Hollingsworth DO - Last Filed: 12/12/22 19:24> Initial Vital Signs Initial Vital Signs: Vital Signs Temperature 96.7 F L 12/12/22 12:32 Pulse Rate 71 12/12/22 12:32 Respiratory Rate 16 12/12/22 12:32 Blood Pressure 167/76 H 12/12/22 12:32 Pulse Oximetry 95 12/12/22 12:32 Oxygen Delivery Method Room Air 12/12/22 12:32 Course <Aleyda Moreau PA-C - Last Filed: 12/12/22 18:08> Orders Ordered: ED Orders 12/12/22 12:38 XR hip w pel if done RT 2V Stat 12/12/22 17:06 CT pelvis wo con Stat 12/12/22 17:54 Consult to Orthopedic Surgery Stat Discontinued Medications Hydrocodone Bitart/Acetaminophen (Hydrocodone/Acet 5/325 Tablet) 1 tab PO NOW ONE Stop: 12/12/22 15:54 Last Admin: 12/12/22 15:56 Dose: 1 tab Documented By: [facility] Consultations Consultation #1: Did consult Dr. Hart, on-call orthopedic provider who states that because this looks like a nondisplaced trochanter fracture patient will not require surgery for this specifically, he advises he can be weight-bearing as tolerated, may want to use a walker or crutches. Follow up with his orthopedic provider. [id number] Vital Signs Vital signs: Vital Signs - 8 hr 12/12/22 12:32 Temperature 96.7 F L Pulse Rate 71 Respiratory Rate 16 Blood Pressure 167/76 H Pulse Oximetry 95 Oxygen Delivery Method Room Air <Katelyn Hollingsworth DO - Last Filed: 12/12/22 19:24> Orders Ordered: ED Orders 12/12/22 12:38 XR hip w pel if done RT 2V Stat 12/12/22 17:06 CT pelvis wo con Stat 12/12/22 17:54 Consult to Orthopedic Surgery Stat Discontinued Medications Hydrocodone Bitart/Acetaminophen (Hydrocodone/Acet 5/325 Tablet) 1 tab PO NOW ONE Stop: 12/12/22 15:54 Last Admin: 12/12/22 15:56 Dose: 1 tab Documented By: [facility] Vital Signs Vital signs: Vital Signs - 8 hr 12/12/22 12:32 Temperature 96.7 F L Pulse Rate 71 Respiratory Rate 16 Blood Pressure 167/76 H Pulse Oximetry 95 Oxygen Delivery Method Room Air MDM - Fall <Aleyda Moreau PA-C - Last Filed: 12/12/22 18:08> Differential Diagnosis Differential diagnosis: Likely other (trochanter fracture nondisplaced, osteoarthritis) Imaging Data CT pelvis: My Impression: Agree with Radiology interpretation Radiologist's Impression: [place] [address] CT Scan Report Signed Patient: Fabian Danielle MR#: [id number] : 1935 Acct:[id number] Age/Sex: 87 / M Date of Service: 12/12/22 Loc: ED Accession Number: [id number] ?? Procedure: CT pelvis wo con Ordering Provider: Aleyda Moreau P.A-C PROCEDURE:? CT PEL WO CON ? INDICATIONS:? eval for fx, right hip/pelvis neg XR ? TECHNIQUE:? Noncontrast 3 mm axial sections acquired through the bony pelvis, with coronal and sagittal reformatting.? ? COMPARISON:? [facility], CR, XR HIP W PEL IF DONE RT 2V, 12/12/2022, 12:38. ? FINDINGS:? Image quality:? Excellent.? ? Bones:? Posterior fusion is present at L4-5.? Hardware is intact without evidence of hardware fracture or periprosthetic lucency to suggest loosening.? There is a nondisplaced focal area of cortical lucency identified within the greater trochanter, not well seen on all sequences.? It is best appreciated on series 5, image 164. ? Soft tissues:? Intestinal gas pattern is nonobstructive.? Fat containing right inguinal hernia is present.? Kidneys are atrophic.? There is ectasia of the distal aorta. ? ? IMPRESSION:? ? Focal area of cortical nondisplaced lucency within the greater trochanter not well seen on all sequences.? Nondisplaced fracture is suspected. ? Dictated by: Marina Bae M.D. on 12/12/2022 at 17:33 ? ? Approved by: Marina Bae M.D. on 12/12/2022 at 17:39?? Treatment and disposition Shared decision making:: Shared decision-making was used to determine the patient's plan of care in the emergency department plan for outpatient follow- up. MDM Narrative Medical decision making narrative: This is a well-appearing but uncomfortable appearing 87-year-old male presents with concern for right hip pain with pain radiating into his right groin worse than he is ever had before with his chronic osteoarthritis. Pain increased after patient had a over stretch injury stepping off of a small boat 2 days ago has been ambulating on it but with some difficulty 2nd to pain. Initial x-rays were unremarkable without evidence of fracture however after exam patient was sent for CT for further evaluation which does show a suspected nondisplaced greater trochanter fracture, patient also appears to have [id number] chronic osteoarthritis. Did consult Dr. Hart, on-call Orthopedics regarding this patient who advises thought he can be weight-bearing as tolerated and seen as an outpatient for follow-up. Recommends walker if patient will tolerate this. Due to patient's increased pain do provide a short prescription of stronger pain medications for him and advised him to follow up closely with primary care provider and orthopedic provider, he is already seeing orthopedics for his chronic lumbar issues. Return precautions provided, follow-up plan discussed, all questions answered. Discharge Plan Departure Patient Disposition: Home Clinical Impression: Closed hip fracture, Acute hip pain Instructions: How to Prevent Falls Activity Restrictions/Additional Instructions: *You have been diagnosed with a nondisplaced fracture of your right trochanter *What to do: *Please continue to take your regular medications as directed. [1 ] New medication prescriptions sent to your pharmacy: [ hydrocodone] [ ] New medication written as a paper prescription [ ] No new medications given *Please follow up with your primary care provider in 2-3 days, call for an appointment. Let them know you were seen in the Emergency Department and that we ask that you be seen in follow up. We will electronically transmit a record of today's note if your PCP is in our system. Your x-ray was negative but your CT scan did show concern for a nondisplaced fracture in your right hip. Based on the location of this recommendation of Orthopedics is that you can bear weight on it as tolerated, although you may want to use a walker moving forward for little while, I strongly recommend that you follow-up with your orthopedic provider and you can discuss further options with them. I did provided with a short course course of stronger pain medicine, but recommend that you start with Tylenol. *If you do not have a primary care provider please contact the [facility] Resource line at [phone]. They will ask some questions about your medical history and help get you set up with a doctor in the community. *Return to Emergency Department if you should have any new, worsening or concerning symptoms, such as [fever greater than 101 F, shaking chills, worsening pain, persistent vomiting or other bothersome symptoms] Prescriptions: New hydrocodone-acetaminophen 5-325 mg tablet 1 tab PO Q8H PRN (Reason: pain) 3 Days Qty: 10 0RF No Action atorvastatin 40 mg tablet 40 mg PO DAILY losartan 100 mg tablet 100 mg PO DAILY pantoprazole 40 mg tablet,delayed release (DR/EC) 40 mg PO DAILY metoprolol tartrate 25 mg tablet 25 mg PO DAILY allopurinol 100 mg tablet 100 mg PO DAILY triamcinolone acetonide [Kenalog] 40 mg/mL suspension 80 mg IM ONCE Qty: 2 0RF polymyxin B sulf-trimethoprim 10,000 unit- 1 mg/mL drops 2 drp EYE-LEFT DAILY Patient Comments: Instill 2 drops into affected eye every six hours for 5 days or until clear ibuprofen 200 mg tablet 200 mg PO Q6H PRN acetaminophen [Tylenol Extra Strength] 500 mg tablet 1,000 mg PO Q6H PRN hydroxyzine pamoate [Vistaril] 25 mg capsule 25 mg PO TID PRN (Reason: pain (scale score 4-6)) Qty: 60 1RF Referrals: Aurora Black ARNP [Primary Care Provider] - Stand Alone Forms: Patient Portal/API <Katelyn Hollingsworth, DO - Last Filed: 12/12/22 19:24> Cosign ED Attending Cosignature Attestation: I was immediately available in the department for consultation. Documentation has been reviewed. Patient was discussed. Images were reviewed. Orthopedic recommendations appreciated.
== END 2022-12-12 18:40 | disposition home or self-care (01) ==
PROVIDERS: Emergency Provider Student in an Organized Health Care Education/Training Program; PCP Nurse Practitioner Family
DX: S72.001A Fracture of unspecified part of neck of right femur, initial encounter for closed fracture (principal); X50.9XXA Other and unspecified overexertion or strenuous movements or postures, initial encounter
CPT/HCPCS: 72192; 73502; 99284

== ENCOUNTER → 2022-12-18 07:38 | Outpatient (CLI) | payer MEDICARE, OTHER, SELFPAY ==
--- NOTE | 2022-12-18 | DI.MRI.S_ITS ---
PROCEDURE: MR HIP RT WO CON INDICATIONS: ACUTE PAIN OF RIGHT HIP TECHNIQUE: Noncontrast coronal T1 spin echo and STIR through the bony pelvis. Coronal and axial T2 fast spin echo with fat saturation, sagittal T1 spin echo, and oblique axial T2 fast spin echo with fat saturation through the hip. COMPARISON: [facility], CR, XR HIP W PEL IF DONE VANE 3TO4V, 06/17/2022, 14:28. [facility], CT, CT ABDOMEN PELVIS W CON, 09/08/2022, 11:41. [facility], CR, XR PELVIS WITH LATERAL HIP RIGHT, 11/18/2022, 9:40. [facility], CT, CT PEL WO CON, 12/12/2022, 17:17. FINDINGS: Image quality: Excellent. Bones and joints: Heterogeneous osseous edema is seen within the right proximal femur with a more confluent area in the subchondral region adjacent to the hip and a more linear serpiginous pattern within the femoral neck extending to the intertrochanteric region. Findings are somewhat atypical and are favored to represent a subacute to chronic subcapital fracture with superimposed healing changes. Bone marrow of the pelvic ring and left proximal femur show normal signal throughout. No intraosseous lesions or fractures. No avascular necrosis of the femoral heads. Postsurgical changes are partially seen in the lumbar spine as well as multilevel degenerative changes. Tendons and ligaments: The gluteus medius and minimus tendons appear intact, without associated muscle atrophy. The proximal iliotibial band appears intact. The iliopsoas tendon appears intact, without adjacent bursal fluid collections. The origin of the hamstring tendon is intact at the ischial tuberosity. The direct and indirect heads of the rectus femoris muscle origin appear intact. Labrum and cartilage: Full-thickness cartilage loss is seen at the superior aspect of the right hip with subchondral edema and subchondral cystic changes as well as marginal osteophyte formation. There is age-appropriate diffuse labral degeneration. Soft tissues: Visualized muscles demonstrate age-appropriate bulk and internal signal. Quadratus femoris muscle demonstrates no internal edema to suggest ischiofemoral impingement. The proximal sciatic neurovascular bundle appears intact. The included portions of the pelvis demonstrate no acute abnormality. IMPRESSION: 1. Suspected subacute to chronic nondisplaced subcapital fracture of the right proximal femoral neck with healing changes. Mild abnormal signal intensity and edema extend throughout the femoral neck into the intertrochanteric region. 2. Severe right hip osteoarthrosis. 3. Postsurgical and degenerative changes in the included lumbar spine. Approved by: Syed Amanda M.D. on 12/18/2022 at 15:03
== END ==
PROVIDERS: PCP Nurse Practitioner Family; Referring Provider Student in an Organized Health Care Education/Training Program; Visit Provider Student in an Organized Health Care Education/Training Program
DX: M19.90 Unspecified osteoarthritis, unspecified site (principal)
CPT/HCPCS: 73721

== ENCOUNTER → 2023-06-16 13:25 | Outpatient (CLI) | payer MEDICARE, OTHER, SELFPAY ==
--- NOTE | 2023-06-16 | DI.MRI.S_ITS ---
PROCEDURE: MR CERVICAL SPINE WO CON INDICATIONS: Radiculopathy, cervical region TECHNIQUE: Noncontrast sagittal T1 spin echo and T2 fast spin echo, sagittal STIR, foraminal oblique sagittal T2 fast spin echo, and axial gradient echo or T2 fast spin echo through the cervical spine. COMPARISON: [facility], MR, MR CERVICAL SPINE WO CON, 03/26/2021, 9:53. FINDINGS: Image quality: Excellent. Alignment and Curvature: There is normal bony alignment. Bone Marrow: Marrow demonstrates normal overall signal. Spinal Cord: Visualized spinal cord has normal size and signal. No cerebellar tonsillar herniation. Paraspinous Soft Tissues: No paravertebral masses. Prevertebral soft tissues are normal in thickness. C2-C3: No significant disc bulge. The foramina and central canal are patent. C3-C4: Diffuse disc bulge, uncovertebral hypertrophy, and ligamentum flavum hypertrophy with facet hypertrophy cause severe bilateral foraminal stenosis. The central canal has mild stenosis. C4-C5: Disc space narrowing, diffuse disc bulge, uncovertebral hypertrophy cause severe bilateral foraminal stenosis. The central canal has mild stenosis. C5-C6: Disc space narrowing and uncovertebral hypertrophy cause moderate right and severe left foraminal stenosis. The central canal has mild stenosis. C6-C7: Disc space narrowing and uncovertebral hypertrophy cause moderate right and severe left foraminal stenosis. The central canal has mild stenosis. C7-T1: No significant disc bulge. The foramina and central canal are patent. IMPRESSION: 1. Multilevel degenerative changes of the cervical spine causing foraminal and central canal stenosis as detailed above. 2. No abnormal signal of the spinal cord. Dictated by: Aaron Sethi M.D. on 06/16/2023 at 14:26 Approved by: Aaron Sethi M.D. on 06/16/2023 at 14:31
== END ==
PROVIDERS: PCP Nurse Practitioner Family; Referring Provider Physician Assistant Surgical; Visit Provider Physician Assistant Surgical
DX: M47.22 Other spondylosis with radiculopathy, cervical region; M48.02 Spinal stenosis, cervical region
CPT/HCPCS: 72141

== ENCOUNTER → 2024-12-21 11:36 | Outpatient (CLI) | payer MEDICARE, OTHER, SELFPAY ==
--- NOTE | 2024-12-21 12:01 | DI.MRI.S_ITS ---
PROCEDURE: MR LUMBAR SPINE WO CON INDICATIONS: LUMBAR STENOSIS TECHNIQUE: Noncontrast sagittal T1 spin echo and T2 fast echo, sagittal STIR, and T2 fast spin echo through the lumbar spine. In cases with scoliosis, additional coronal T2 fast spin echo may be performed. COMPARISON: [facility], MR, MR LUMBAR SPINE WO CON, 03/20/2022, 13:52. FINDINGS: Image quality: Excellent. Alignment and Curvature: There is minimal rightward curvature with apex at L3-4. Posterior fusion at L4-5. Bone Marrow: Marrow is of normal overall signal. No acute vertebral body compression fractures. Spinal Cord: Conus medullaris terminates at the L1 level. Visualized cord demonstrates normal signal and size. Paraspinous Soft Tissues: No paravertebral masses. Discs: Multilevel moderate to severe disc desiccation most prominent at L2-3, L3-4 and L5-S1. T12-L1: Mild disc bulge with small superimposed protrusion. Minimal spinal stenosis. Moderate to severe foraminal narrowing, right greater than left with facet and ligamentum flavum hypertrophy. Overall appearance is stable. L1-L2: Mild disc bulge with moderate spinal stenosis, progressive. There is moderate bilateral foraminal narrowing, left greater than right with facet and ligamentum flavum hypertrophy. Overall appearance is stable. L2-L3: Mild disc bulge with severe spinal stenosis mildly progressive. Moderate bilateral foraminal narrowing, right greater than facet and ligamentum hypertrophy change. L3-L4: Mild disc bulge with moderate spinal stenosis progressive. Moderate to severe bilateral foraminal narrowing with mild compression the exiting L3 nerve roots bilaterally. Facet and ligamentum flavum hypertrophy are present. No significant interval change. L4-L5: Postsurgical changes are present. Right hemilaminectomy. Paic-vc-ixkwhpvn spinal stenosis. Ouao-pe-nuswnyic bilateral foraminal narrowing, left greater than right. No interval change. L5-S1: Mild disc bulge with mild spinal stenosis. Moderate bilateral foraminal narrowing, right greater with facet and ligamentum flavum hypertrophy. No significant interval change. IMPRESSION: Posterior fusion at L4-5. Multilevel degenerative changes with areas of interval progression as noted above. Dictated by: Marina Bae M.D. on 12/21/2024 at 16:15 Approved by: Marina Bae M.D. on 12/21/2024 at 16:24
== END ==
PROVIDERS: PCP Nurse Practitioner Family; Referring Provider Orthopaedic Surgery; Visit Provider Orthopaedic Surgery
DX: M48.062 Spinal stenosis, lumbar region with neurogenic claudication (principal); M48.07 Spinal stenosis, lumbosacral region; M47.816 Spondylosis without myelopathy or radiculopathy, lumbar region; M47.817 Spondylosis without myelopathy or radiculopathy, lumbosacral region; Z98.1 Arthrodesis status
CPT/HCPCS: 72148